=== PATIENT | male | born 1955 | race Caucasian/White ===

== ENCOUNTER 2024-08-04 08:34 | Observation (INO) | payer BC, MEDICARE ==
--- NOTE | 2024-08-04 08:43 | ED ---
General Adult HPI - General Stated complaint: Fall-head injury Time Seen by Provider: 08/04/24 08:34 Source: patient, EMS, RN notes reviewed Mode of arrival: EMS Limitations: no limitations - History of Present Illness Initial comments: 69-year-old male presents emergency department chief complaint of a head injury. Patient brought in via EMS states that he rolled out of bed striking his head he is on no blood thinners for A-fib. Patient is found to be in A-fib RVR. Patient was placed in c-collar by EMS states he has minimal neck discomfort. There was no loss conscious. Denies any other associated injuries. - Related Data Home Medications Medication Instructions Recorded Confirmed Acetaminophen Tab [Tylenol] 650 mg PO Q4H PRN 08/04/24 08/04/24 Apixaban [Eliquis] 5 mg PO BID 08/04/24 08/04/24 Calcium Phos/D3/Magnesium/Zinc 1 tab PO TID PRN 08/04/24 08/04/24 [Fzjyzrl-Ssr-Vdkf-Vitamin D3] Folic Acid 1 mg PO DAILY 08/04/24 08/04/24 Furosemide [Lasix] 20 mg PO DAILY 08/04/24 08/04/24 Isosorbide Mononitrate ER [Imdur] 60 mg PO DAILY 08/04/24 08/04/24 Melatonin 10 mg PO HS 08/04/24 08/04/24 Multivitamins, Thera [Multivitamin 1 tab PO DAILY 08/04/24 08/04/24 (formulary)] Rosuvastatin [Crestor] 20 mg PO HS 08/04/24 08/04/24 Spironolactone [Aldactone] 25 mg PO DAILY 08/04/24 08/04/24 metFORMIN HCL ER [Glucophage XR] 500 mg PO W/SUPPER 08/04/24 08/04/24 traZODone HCL [Desyrel] 50 - 150 mg PO HS PRN 08/04/24 08/04/24 Previous Rx's Medication Instructions Recorded Diltiazem Cd [Cardizem CD] 180 mg PO DAILY #0 cap 08/04/24 Metoprolol Succinate (ER) [Toprol 100 mg PO DAILY #30 tab 08/04/24 XL] lisinopriL [Zestril] 10 mg PO DAILY #0 08/04/24 Allergies Allergy/AdvReac Type Severity Reaction Status Date / Time No Known Allergies Allergy Verified 08/04/24 11:22 Review of Systems ROS Statement: Those systems with pertinent positive or pertinent negative responses have been documented in the HPI. ROS Other: All systems not noted in ROS Statement are negative. General Exam Limitations: no limitations General appearance: alert, in no apparent distress Head exam: Present: atraumatic, normocephalic, normal inspection Eye exam: Present: normal appearance, PERRL, EOMI. Absent: scleral icterus, conjunctival injection, periorbital swelling ENT exam: Present: normal exam, normal oropharynx, mucous membranes moist Neck exam: Present: normal inspection. Absent: tenderness, meningismus, full ROM (In c-collar), lymphadenopathy Respiratory exam: Present: normal lung sounds bilaterally. Absent: respiratory distress, wheezes, rales, rhonchi, stridor Cardiovascular Exam: Present: tachycardia, irregular rhythm, normal heart sounds. Absent: systolic murmur, diastolic murmur, rubs, gallop, clicks Extremities exam: Present: normal inspection, full ROM, normal capillary refill. Absent: tenderness, pedal edema, joint swelling, calf tenderness Neurological exam: Present: alert, oriented X3, CN II-XII intact, reflexes normal. Absent: motor sensory deficit Skin exam: Present: warm, dry, intact, normal color. Absent: rash Course Vital Signs 08/04/24 08/04/24 08/04/24 08:43 12:02 15:37 Temperature 97.4 F L Pulse Rate 117 H 94 68 Respiratory 22 16 16 Rate Blood Pressure 124/89 111/62 131/98 O2 Sat by Pulse 94 L 99 96 Oximetry EKG Findings - EKG Comments: EKG Findings:: EKG performed at 8: 40 A-fib with a rate of 92 QRS 114 QT/QTc 370/423 - EKG Results: EKG: interpreted by ERMD Medical Decision Making - Medical Decision Making Was pt. sent in by a medical professional or institution (, PA, NON DESTRUCTIVE TESTER, urgent care, hospital, or longterm...) When possible be specific @ -[place] Did you speak to anyone other than the patient for history (EMS, parent, family, police, friend...)? What history was obtained from this source @ -No Did you review nursing and triage notes (agree or disagree)? Why? @ -I reviewed and agree with nursing and triage notes Were old charts reviewed (outside hosp., previous admission, EMS record, old EKG, old radiological studies, urgent care reports/EKG's, longterm records)? Report findings @ -No old charts were reviewed Differential Diagnosis (chest pain, altered mental status, abdominal pain women, abdominal pain men, vaginal bleeding, weakness, fever, dyspnea, syncope, heada fco, dizziness, GI bleed, back pain, seizure, CVA, palpatations, mental health, musculoskeletal)? @ -Differential Chest Pain: Stable Angina, Unstable Angina, STEMI, NSTEMI Aortic Dissection, Pneumothorax, Musculoskeletal, Esophageal Spasm GERD, Cholecystitis, Pancreatitis, Zoster, this is not meant to be an all-inclusive list. EKG interpreted by me (3pts min.). @ -As above X-rays interpreted by me (1pt min.). @ -Chest x-ray shows no acute cardiopulmonary process CT interpreted by me (1pt min.). @ -CT brain, C-spine showing no acute intracranial hemorrhage, mass effect U/S interpreted by me (1pt. min.). @ -None done What testing was considered but not performed or refused? (CT, X-rays, U/S, labs)? Why? @ -None What meds were considered but not given or refused? Why? @ -None Did you discuss the management of the patient with other professionals (professionals i.e. , PA, NON DESTRUCTIVE TESTER, lab, RT, psych nurse, director social service, core inspector, teacher, traffic division commanding officer, window caser)? Give summary @ -EM H for admission Was smoking cessation discussed for >3mins.? @ -No Was critical care preformed (if so, how long)? @ -No Were there social determinants of health that impacted care today? How? (Homelessness, low income, unemployed, alcoholism, drug addiction, transportation, low edu. Level, literacy, decrease access to med. care, [facility], rehab)? @ -No Was there de-escalation of care discussed even if they declined (Discuss DNR or withdrawal of care, Hospice)? DNR status @ -No What co-morbidities impacted this encounter? (DM, HTN, Smoking, COPD, CAD, Cancer, CVA, ARF, Chemo, Hep., AIDS, mental health diagnosis, sleep apnea, morbid obesity)? @ -Abuse Was patient admitted / discharged? Hospital course, mention meds given and route, prescriptions, significant lab abnormalities, going to OR and other p ertinent info. @ -Made patient presented from [place] after fall out of bed, head injury on blood thinners. Code coag was called. CT was negative patient found to be in A-fib RVR. Patient started on Cardizem patient is admitted for further treatment and management. Undiagnosed new problem with uncertain prognosis? @ -No Drug Therapy requiring intensive monitoring for toxicity (Heparin, Nitro, Insulin, Cardizem)? @ -Cardizem Were any procedures done? @ -No Diagnosis/symptom? @ -Fall, A-fib RVR Acute, or Chronic, or Acute on Chronic? @ -Acute Uncomplicated (without systemic symptoms) or Complicated (systemic symptoms)? @ -Complicated Side effects of treatment? @ -No Exacerbation, Progression, or Severe Exacerbation? @ -No Poses a threat to life or bodily function? How? (Chest pain, USA, MD, pneumonia, PE, COPD, DKA, ARF, appy, cholecystitis, CVA, Diverticulitis, Homicidal, Suicidal, threat to staff... and all critical care pts) @ -Yes A-fib causing cardiac arrest - Lab Data Result diagrams: 08/04/24 08:49 08/04/24 08:49 Lab Results 08/04/24 08/04/24 08/04/24 Range/Units 08:49 08:49 08:49 WBC 7.8 (3.8-10.6) k/uL RBC 3.60 L (4.30-5.90) m/uL Hgb 12.4 L (13.0-17.5) gm/dL Hct 38.3 L (39.0-53.0) % MCV 106.3 H (80.0-100.0) fL MCH 34.4 (25.0-35.0) pg MCHC 32.4 (31.0-37.0) g/dL RDW 14.4 (11.5-15.5) % Plt Count 141 L (150-450) k/uL MPV 9.1 Neutrophils % 79 % Lymphocytes % 12 % Monocytes % 5 % Eosinophils % 2 % Basophils % 0 % Neutrophils # 6.2 (1.3-7.7) k/uL Lymphocytes # 1.0 (1.0-4.8) k/uL Monocytes # 0.4 (0-1.0) k/uL Eosinophils # 0.2 (0-0.7) k/uL Basophils # 0.0 (0-0.2) k/uL Macrocytosis Moderate PT 10.7 (10.0-12.5) sec INR 1.0 (<1.2) APTT 22.8 (22.0-30.0) sec Sodium 136 L (137-145) mmol/L Potassium 4.9 (3.5-5.1) mmol/L Chloride 103 (98-107) mmol/L Carbon Dioxide 22 (22-30) mmol/L Anion Gap 11 mmol/L BUN 36 H (9-20) mg/dL Creatinine 1.27 H (0.66-1.25) mg/dL Est GFR (CKD-EPI)AfAm 67 (>60 ml/min/1.73 sqM) Est GFR (CKD-EPI)NonAf 58 (>60 ml/min/1.73 sqM) Glucose 248 H (74-99) mg/dL Calcium 9.6 (8.4-10.2) mg/dL Magnesium 2.1 (1.6-2.3) mg/dL Total Bilirubin 1.2 (0.2-1.3) mg/dL AST 31 (17-59) U/L ALT 25 (4-49) U/L Alkaline Phosphatase 79 (38-126) U/L Troponin I (0.000-0.034) ng/mL Total Protein 6.8 (6.3-8.2) g/dL Albumin 3.9 (3.5-5.0) g/dL 08/04/24 Range/Units 08:49 WBC (3.8-10.6) k/uL RBC (4.30-5.90) m/uL Hgb (13.0-17.5) gm/dL Hct (39.0-53.0) % MCV (80.0-100.0) fL MCH (25.0-35.0) pg MCHC (31.0-37.0) g/dL RDW (11.5-15.5) % Plt Count (150-450) k/uL MPV Neutrophils % % Lymphocytes % % Monocytes % % Eosinophils % % Basophils % % Neutrophils # (1.3-7.7) k/uL Lymphocytes # (1.0-4.8) k/uL Monocytes # (0-1.0) k/uL Eosinophils # (0-0.7) k/uL Basophils # (0-0.2) k/uL Macrocytosis PT (10.0-12.5) sec INR (<1.2) APTT (22.0-30.0) sec Sodium (137-145) mmol/L Potassium (3.5-5.1) mmol/L Chloride (98-107) mmol/L Carbon Dioxide (22-30) mmol/L Anion Gap mmol/L BUN (9-20) mg/dL Creatinine (0.66-1.25) mg/dL Est GFR (CKD-EPI)AfAm (>60 ml/min/1.73 sqM) Est GFR (CKD-EPI)NonAf (>60 ml/min/1.73 sqM) Glucose (74-99) mg/dL Calcium (8.4-10.2) mg/dL Magnesium (1.6-2.3) mg/dL Total Bilirubin (0.2-1.3) mg/dL AST (17-59) U/L ALT (4-49) U/L Alkaline Phosphatase (38-126) U/L Troponin I <0.012 (0.000-0.034) ng/mL Total Protein (6.3-8.2) g/dL Albumin (3.5-5.0) g/dL Critical Care Time Critical Care Time: Yes Total Critical Care Time: 35 Disposition Clinical Impression: Atrial fibrillation with RVR Disposition: ADMITTED IP TO THIS HOSP Condition: Fair Time of Disposition: 10:47
[2024-08-04 08:47] VITALS: TEMP 97.4
[2024-08-04 08:56] LABS: Basophils % (A) 0 %; Eosinophils # (A) 0.2 k/uL (0-0.7); Eosinophils % (A) 2 %; HCT 38.3 % (39.0-53.0); HGB 12.4 gm/dL (13.0-17.5); Lymphocytes % (A) 12 %; MCH 34.4 pg (25.0-35.0); MCHC 32.4 g/dL (31.0-37.0); MCV 106.3 fL (80.0-100.0); Macrocytosis Moderate; Mean Platelet Volume 9.1; Monocytes # (A) 0.4 k/uL (0-1.0); Monocytes % (A) 5 %; Neutrophils # (A) 6.2 k/uL (1.3-7.7); Neutrophils % (A) 79 %; Platelet Count 141 k/uL (150-450); RDW 14.4 % (11.5-15.5); WBC 7.8 k/uL (3.8-10.6)
--- NOTE | 2024-08-04 08:57 | CT ---
EXAMINATION TYPE: CT brain cspine wo con DATE OF EXAM: 08/04/2024 8:47 AM COMPARISON: None. CLINICAL INDICATION: Male, 69 years old with history of pain; Fall on thinners, code coag, pain TECHNIQUE: Brain: Multiple axial CT images of the brain were obtained without IV contrast. Cspine: Axial CT images from the skull base to the inferior aspect of T2 we obtained without intraven ous contrast. Coronal and sagittal reformatted images were also reviewed. . CT DLP: 2055.6 mGycm, Automated exposure control for dose reduction was used. FINDINGS: Brain: Extra-axial spaces: No abnormal extra-axial fluid collections. Ventricular system: Within normal limits Cerebral parenchyma: No acute intraparenchymal hemorrhage or mass effect. The granado-white junction is well differentiated. Cerebellum: Unremarkable. Mass effect: No evidence of midline shift. Intracranial vasculature: unremarkable Soft tissues: Posterior right scalp edema. Calvarium/osseous structures: No depressed skull fracture. Paranasal sinuses and mastoid air cells: Clear. Visualized orbits: Orbital contents are intact. Cervical spine: Fracture: No spinal fractures. Remote appearing left posterior rib fractures. Osseous structures: Multilevel degenerative disc disease changes with endplate spurring and disc oste ophyte complex's. Vertebral alignment: Within normal limits. Spinal canal/Neural Foramina: No evidence of significant spinal canal narrowing. No evidence for sign ificant neural foraminal stenosis. Neck soft tissues: Prevertebral soft tissues are within normal limits. Other: The airway is patent. The lung apices are clear. Atherosclerosis of the carotid bifurcations a nd internal carotid arteries intracranial portions. IMPRESSION: 1. No acute intracranial process. 2. Posterior right scalp edema. 3. No evidence of cervical spine fracture. 4. Mild multilevel degenerative disc disease. [facility], , 08/04/2024 8:55 AM
[2024-08-04 09:04] LABS: Partial Thromboplastin Time 22.8 sec (22.0-30.0); Prothrombin Time 10.7 sec (10.0-12.5)
--- NOTE | 2024-08-04 09:10 | XR ---
EXAMINATION TYPE: XR chest 1V portable DATE OF EXAM: 08/04/2024 9:06 AM COMPARISON: None. CLINICAL INDICATION: Male, 69 years old with history of chest pain, TECHNIQUE: XR chest 1V portable view(s) obtained. FINDINGS: The heart size is enlarged. The pulmonary vasculature is normal. The lungs are clear. IMPRESSION: 1. No acute pulmonary process. 2. Cardiomegaly [facility], , 08/04/2024 9:08 AM
[2024-08-04] MEDS: DILTIAZEM DRIP BOLUS FROM BAG 1 MG SOLN IV ONE (09:25)
[2024-08-04] MEDS: DILTIAZEM 125 MG in SODIUM CHLORIDE 0.9% 100 ML IV SCH (09:26)
[2024-08-04 09:28] LABS: ALT 25 U/L (4-49); AST 31 U/L (17-59); African American GFR (CKD) 67 (>60 ml/min/1.73 sqM); Albumin 3.9 g/dL (3.5-5.0); Alkaline Phosphatase 79 U/L (38-126); Anion Gap 11 mmol/L; Blood Urea Nitrogen 36 mg/dL (9-20); Calcium 9.6 mg/dL (8.4-10.2); Carbon Dioxide 22 mmol/L (22-30); Chloride 103 mmol/L (98-107); Glucose 248 mg/dL (74-99); Magnesium 2.1 mg/dL (1.6-2.3); Non-African American GFR(CKD) 58 (>60 ml/min/1.73 sqM); Potassium 4.9 mmol/L (3.5-5.1); Sodium 136 mmol/L (137-145); Total Bilirubin 1.2 mg/dL (0.2-1.3); Total Protein 6.8 g/dL (6.3-8.2)
[2024-08-04] MEDS ORDERED: NITROGLYCERIN SL TABS 0.4 MG TAB SUBLINGUAL PRN (10:44)
[2024-08-04 12:03] VITALS: RESP 16
[2024-08-04] MEDS: APIXABAN 5 MG TAB PO SCH (13:09)
[2024-08-04] MEDS: DILTIAZEM CD 180 MG CAP.ER.24H PO SCH (13:09)
[2024-08-04] MEDS: METOPROLOL SUCCINATE (ER) 100 MG TAB.ER.24H PO SCH (13:09)
[2024-08-04] MEDS ORDERED: traZODone HCL 50 MG TAB PO PRN (13:12)
--- NOTE | 2024-08-04 13:13 | P.CRDCN ---
History of Present Illness Consult date: 08/04/24 Consult reason: atrial fibrillation History of present illness: This is a 69-year-old male with history of atrial fibrillation on Eliquis, hypertension, hyperlipidemia, diabetes. Patient states that he is at [facility] and was having a dream and fell out of bed and hit his head. Blood pressure 111/62, heart rate 94, pulse ox 99% on room air. Patient has been started on Cardizem drip and heart rate is well-controlled. Patient states that he is concerned that he will lose his room at [facility] if he does not go back there soon. -EKG: Atrial fibrillation 92 bpm -Chest x-ray: No acute process. Cardiomegaly. -CT of the brain and cervical spine: No acute intracranial process. Right scalp edema. No evidence of cervical spine fracture. Mild multilevel degenerative disc disease. -Laboratory studies: WBC 7.8, hemoglobin 12.4, platelet count 141. Creatinine 36, creatinine 1.27. Troponin negative x 2. -Home cardiac medications: Eliquis 5 mg twice daily, Cardizem CD 240 mg daily, Lasix 20 mg daily, Imdur 60 mg daily, lisinopril 10 mg twice daily, Toprol-XL 100 mg twice daily, Crestor 20 mg at bedtime, spironolactone 25 mg daily Review Of Systems: At the time of my exam: CONSTITUTIONAL: Denies fever or chills. HEENT: Denies blurred vision, vision changes, or eye pain. Denies hemoptysis CARDIOVASCULAR: Denies chest pain. Denies orthopnea. Denies PND. Denies palpitations RESPIRATORY: Denies shortness of breath. GASTROINTESTINAL: Denies abdominal pain. Denies nausea or vomiting. HEMATOLOGIC: Denies bleeding disorders. GENITOURINARY: Denies any blood in urine. SKIN: Denies puritis. Denies rash. Physical examination: Gen: This is a 69-year-old male in no acute distress VS: reviewed HEENT: Head has scalp hematoma, normocephalic. Pupils equal, round. Sclerae is anicteric. NECK: Supple. No JVD. LUNGS: Clear to auscultation. No wheezes or rhonchi. No intercostal retractions. HEART: Irregular rate and rhythm. ABDOMEN: Soft No tenderness. EXTREMITIES: No pedal edema. No calf tenderness. NEUROLOGICAL: Patient is awake, alert and oriented x3. Assessment: Atrial fibrillation with RVR, probable paroxysmal atrial fibrillation Hypertension Hyperlipidemia Diabetes Plan: Resume patient's home cardiac medications with the following changes Decrease metoprolol 100 mg to daily Decrease Cardizem CD to 180 mg Discontinue Cardizem drip Obtain 2-D echocardiogram and Doppler study to assess cardiac structure and function After echocardiogram is obtained, patient is cleared for discharge back to [facility]. Thank you kindly for this consultation. Nurse practitioner note has been reviewed, I agree with documented findings and plan of care. Patient was seen and examined. Past Medical History Past Medical History: Atrial Fibrillation, Diabetes Mellitus, Hypertension Additional Past Medical History / Comment(s): ETOH abuse History of Any Multi-Drug Resistant Organisms: None Reported Past Surgical History: No Surgical Hx Reported Past Psychological History: No Psychological Hx Reported Smoking Status: Never smoker Past Alcohol Use History: Abuse, Daily Past Drug Use History: None Reported Medications and Allergies Home Medications Medication Instructions Recorded Confirmed Type Acetaminophen Tab [Tylenol] 650 mg PO Q4H PRN 08/04/24 08/04/24 History Apixaban [Eliquis] 5 mg PO BID 08/04/24 08/04/24 History Calcium Phos/D3/Magnesium/Zinc 1 tab PO TID PRN 08/04/24 08/04/24 History [Rrzzjhg-Ydm-Igpj-Vitamin D3] Diltiazem Cd [Cardizem CD] 240 mg PO DAILY 08/04/24 08/04/24 History Folic Acid 1 mg PO DAILY 08/04/24 08/04/24 History Furosemide [Lasix] 20 mg PO DAILY 08/04/24 08/04/24 History Isosorbide Mononitrate ER [Imdur] 60 mg PO DAILY 08/04/24 08/04/24 History Melatonin 10 mg PO HS 08/04/24 08/04/24 History Metoprolol Succinate (ER) [Toprol 100 mg PO BID 08/04/24 08/04/24 History Xl] Multivitamins, Thera [Multivitamin 1 tab PO DAILY 08/04/24 08/04/24 History (formulary)] Rosuvastatin [Crestor] 20 mg PO HS 08/04/24 08/04/24 History Spironolactone [Aldactone] 25 mg PO DAILY 08/04/24 08/04/24 History lisinopriL [Zestril] 10 mg PO BID 08/04/24 08/04/24 History metFORMIN HCL ER [Glucophage XR] 500 mg PO W/SUPPER 08/04/24 08/04/24 History traZODone HCL [Desyrel] 50 - 150 mg PO HS PRN 08/04/24 08/04/24 History Allergies Allergy/AdvReac Type Severity Reaction Status Date / Time No Known Allergies Allergy Verified 08/04/24 11:22 Physical Exam Vitals: Vital Signs Temp Pulse Resp BP Pulse Ox 08/04/24 12:02 94 16 111/62 99 08/04/24 08:43 97.4 F L 117 H 22 124/89 94 L Intake and Output 08/03/24 08/04/24 08/04/24 22:59 06:59 14:59 Other: Weight 136.078 kg Results 08/04/24 08:49 08/04/24 08:49 Cardiac Enzymes 08/04/24 08/04/24 08/04/24 Range/Units 08:49 08:49 11:30 AST 31 (17-59) U/L Troponin I <0.012 <0.012 (0.000-0.034) ng/mL Coagulation 08/04/24 Range/Units 08:49 PT 10.7 (10.0-12.5) sec APTT 22.8 (22.0-30.0) sec CBC 08/04/24 Range/Units 08:49 WBC 7.8 (3.8-10.6) k/uL RBC 3.60 L (4.30-5.90) m/uL Hgb 12.4 L (13.0-17.5) gm/dL Hct 38.3 L (39.0-53.0) % Plt Count 141 L (150-450) k/uL Comprehensive Metabolic Panel 08/04/24 Range/Units 08:49 Sodium 136 L (137-145) mmol/L Potassium 4.9 (3.5-5.1) mmol/L Chloride 103 (98-107) mmol/L Carbon Dioxide 22 (22-30) mmol/L BUN 36 H (9-20) mg/dL Creatinine 1.27 H (0.66-1.25) mg/dL Glucose 248 H (74-99) mg/dL Calcium 9.6 (8.4-10.2) mg/dL AST 31 (17-59) U/L ALT 25 (4-49) U/L Alkaline Phosphatase 79 (38-126) U/L Total Protein 6.8 (6.3-8.2) g/dL Albumin 3.9 (3.5-5.0) g/dL Current Medications Generic Name Dose Route Start Last Admin Trade Name Freq PRN Reason Stop Dose Admin Diltiazem HCl 125 mg/ Sodium 125 mls @ 5 mls/hr 08/04/24 09:15 08/04/24 09:26 Chloride IV 5 mg/hr .Q24H GEOFF 5 mls/hr Administration 5 MG/HR Nitroglycerin 0.4 mg 08/04/24 10:44 Nitroglycerin Sl Tabs 0.4 Mg Tab SUBLINGUAL Q5M PRN Chest Pain Intake and Output 08/03/24 08/04/24 08/04/24 22:59 06:59 14:59 Other: Weight 136.078 kg Patient Weight 08/05/24 06:59 Weight 136.078 kg 08/04/24 08:49 08/04/24 08:49
[2024-08-04] MEDS: METOPROLOL TARTRATE 25 MG TAB PO SCH (13:15)
--- NOTE | 2024-08-04 13:22 | P.HPIM ---
History of Present Illness Patient is a 71-year-old pleasant obese male came in after a fall decubiti mechanical fall fell from bed happily he was having an active dream. Patient is admitted because of atrial fibrillation with rapid unclear rate was on Cardizem IV heart rate has come down and patient was eval by cardiology and patient will be discharged today with medication changes mention as mentioned below. Chest x-ray did not show any cardiomegaly patient is unsure whether he has heart failure at night but does take Aldactone Lasix and lisinopril. Patient blood pressure is low normal at this time. Patient had a scalp hematoma CT of the brain and CT cervical spine did not show any fractures except for multilevel degenerative disc disease. Patient is transition to oral medication cleared by cardiology will be discharged later today. REVIEW OF SYSTEMS: All other systems are negative except those mentioned in the HPI PHYSICAL EXAMINATION: GENERAL: The patient is alert and oriented x3, not in any acute distress. Well developed, well nourished. Obese HEENT: Pupils are round and equally reacting to light. EOMI. No scleral icterus. No conjunctival pallor. Normocephalic, atraumatic. No pharyngeal erythema. No thyromegaly. CARDIOVASCULAR: S1 and S2 present. No murmurs, rubs, or gallops. PULMONARY: Chest is clear to auscultation, no wheezing or crackles. ABDOMEN: Soft, nontender, nondistended, normoactive bowel sounds. No palpable organomegaly. MUSCULOSKELETAL: No joint swelling or deformity. EXTREMITIES: No cyanosis, clubbing, nonpitting bilateral pedal edema NEUROLOGICAL: Gross neurological examination did not reveal any focal deficits. SKIN: No rashes. Assessment and plan -Atrial fibrillation with rapid unclear rate patient is presently rate controlled patient has paroxysmal atrial fibrillation IV Cardizem will be discontinued patient wall Cardizem will be decreased to 180 mg sustained-release and metoprolol will be increased from 25 to 100 mg sustained-release patient will continue with Eliquis will be discharged today -Possibility diabetes mellitus -Hyperlipidemia of congestive heart failure although I do not have any echocardiogram available patient is not in heart failure exacerbation patient will be resumed on Lasix Aldactone and lisinopril we will cut down the dose of lisinopril because of hypotension -Type 2 diabetes mellitus -Hyperlipidemia Morbid obesity possibly of sleep apnea patient will be discharged Later today we will monitor him for 2-3 more hours before discharge next Past Medical History Past Medical History: Atrial Fibrillation, Diabetes Mellitus, Hypertension Additional Past Medical History / Comment(s): ETOH abuse History of Any Multi-Drug Resistant Organisms: None Reported Past Surgical History: No Surgical Hx Reported Past Psychological History: No Psychological Hx Reported Smoking Status: Never smoker Past Alcohol Use History: Abuse, Daily Past Drug Use History: None Reported Medications and Allergies Home Medications Medication Instructions Recorded Confirmed Type Acetaminophen Tab [Tylenol] 650 mg PO Q4H PRN 08/04/24 08/04/24 History Apixaban [Eliquis] 5 mg PO BID 08/04/24 08/04/24 History Calcium Phos/D3/Magnesium/Zinc 1 tab PO TID PRN 08/04/24 08/04/24 History [Xvaiksw-Aug-Peao-Vitamin D3] Diltiazem Cd [Cardizem CD] 180 mg PO DAILY #0 cap 08/04/24 Rx Folic Acid 1 mg PO DAILY 08/04/24 08/04/24 History Furosemide [Lasix] 20 mg PO DAILY 08/04/24 08/04/24 History Isosorbide Mononitrate ER [Imdur] 60 mg PO DAILY 08/04/24 08/04/24 History Melatonin 10 mg PO HS 08/04/24 08/04/24 History Metoprolol Succinate (ER) [Toprol 100 mg PO DAILY #30 tab 08/04/24 Rx XL] Multivitamins, Thera [Multivitamin 1 tab PO DAILY 08/04/24 08/04/24 History (formulary)] Rosuvastatin [Crestor] 20 mg PO HS 08/04/24 08/04/24 History Spironolactone [Aldactone] 25 mg PO DAILY 08/04/24 08/04/24 History lisinopriL [Zestril] 10 mg PO DAILY #0 08/04/24 08/04/24 Rx metFORMIN HCL ER [Glucophage XR] 500 mg PO W/SUPPER 08/04/24 08/04/24 History traZODone HCL [Desyrel] 50 - 150 mg PO HS PRN 08/04/24 08/04/24 History Allergies Allergy/AdvReac Type Severity Reaction Status Date / Time No Known Allergies Allergy Verified 08/04/24 11:22 Physical Exam Vitals: Vital Signs Temp Pulse Resp BP Pulse Ox 08/04/24 12:02 94 16 111/62 99 08/04/24 08:43 97.4 F L 117 H 22 124/89 94 L Intake and Output 08/03/24 08/04/24 08/04/24 22:59 06:59 14:59 Other: Weight 136.078 kg Results CBC & Chem 7: 08/04/24 08:49 08/04/24 08:49 Labs: Abnormal Lab Results - Last 24 Hours (Table) 08/04/24 08/04/24 Range/Units 08:49 08:49 RBC 3.60 L (4.30-5.90) m/uL Hgb 12.4 L (13.0-17.5) gm/dL Hct 38.3 L (39.0-53.0) % MCV 106.3 H (80.0-100.0) fL Plt Count 141 L (150-450) k/uL Sodium 136 L (137-145) mmol/L BUN 36 H (9-20) mg/dL Creatinine 1.27 H (0.66-1.25) mg/dL Glucose 248 H (74-99) mg/dL
--- NOTE | 2024-08-04 13:22 | P.DS ---
Providers Date of admission: 08/04/24 10:42 Attending physician: Kathie Zaldivar Consults: 08/04/24 10:44 Consult Physician Urgent Consulting Provider: Lino Chen Consult Reason/Comments: afib Do you want consulting provider notified?: Yes Primary care physician: Physician Nonstaff Hospital Course: Patient is a 71-year-old pleasant obese male came in after a fall decubiti mechanical fall fell from bed happily he was having an active dream. Patient is admitted because of atrial fibrillation with rapid unclear rate was on Cardizem IV heart rate has come down and patient was eval by cardiology and patient will be discharged today with medication changes mention as mentioned below. Chest x-ray did not show any cardiomegaly patient is unsure whether he has heart failure at night but does take Aldactone Lasix and lisinopril. Patient blood pressure is low normal at this time. Patient had a scalp hematoma CT of the brain and CT cervical spine did not show any fractures except for multilevel degenerative disc disease. Patient is transition to oral medication cleared by cardiology will be discharged later today. REVIEW OF SYSTEMS: All other systems are negative except those mentioned in the HPI PHYSICAL EXAMINATION: GENERAL: The patient is alert and oriented x3, not in any acute distress. Well developed, well nourished. Obese HEENT: Pupils are round and equally reacting to light. EOMI. No scleral icterus. No conjunctival pallor. Normocephalic, atraumatic. No pharyngeal erythema. No thyromegaly. CARDIOVASCULAR: S1 and S2 present. No murmurs, rubs, or gallops. PULMONARY: Chest is clear to auscultation, no wheezing or crackles. ABDOMEN: Soft, nontender, nondistended, normoactive bowel sounds. No palpable organomegaly. MUSCULOSKELETAL: No joint swelling or deformity. EXTREMITIES: No cyanosis, clubbing, nonpitting bilateral pedal edema NEUROLOGICAL: Gross neurological examination did not reveal any focal deficits. SKIN: No rashes. Assessment and plan -Atrial fibrillation with rapid unclear rate patient is presently rate controlled patient has paroxysmal atrial fibrillation IV Cardizem will be discontinued patient wall Cardizem will be decreased to 180 mg sustained-release and metoprolol will be increased from 25 to 100 mg sustained-release patient will continue with Eliquis will be discharged today -Possibility diabetes mellitus -Hyperlipidemia of congestive heart failure although I do not have any echocardiogram available patient is not in heart failure exacerbation patient will be resumed on Lasix Aldactone and lisinopril we will cut down the dose of lisinopril because of hypotension -Type 2 diabetes mellitus -Hyperlipidemia Morbid obesity possibly of sleep apnea patient will be discharged Later today we will monitor him for 2-3 more hours before discharge next Patient Condition at Discharge: Fair Plan - Discharge Summary New Discharge Prescriptions: New Diltiazem Cd [Cardizem CD] 180 mg PO DAILY #0 cap Metoprolol Succinate (ER) [Toprol XL] 100 mg PO DAILY #30 tab Continue Acetaminophen Tab [Tylenol] 650 mg PO Q4H PRN PRN Reason: Pain Melatonin 10 mg PO HS Calcium Phos/D3/Magnesium/Zinc [Qkiscss-Tla-Shoi-Vitamin D3] 1 tab PO TID PRN PRN Reason: Supplement Furosemide [Lasix] 20 mg PO DAILY Folic Acid 1 mg PO DAILY traZODone HCL [Desyrel] 50 - 150 mg PO HS PRN PRN Reason: Insomnia Spironolactone [Aldactone] 25 mg PO DAILY Rosuvastatin [Crestor] 20 mg PO HS Multivitamins, Thera [Multivitamin (formulary)] 1 tab PO DAILY metFORMIN HCL ER [Glucophage XR] 500 mg PO W/SUPPER Isosorbide Mononitrate ER [Imdur] 60 mg PO DAILY Apixaban [Eliquis] 5 mg PO BID Changed lisinopriL [Zestril] 10 mg PO DAILY #0 Discontinued Metoprolol Succinate (ER) [Toprol Xl] 100 mg PO BID Diltiazem Cd [Cardizem CD] 240 mg PO DAILY Discharge Medication List Acetaminophen Tab [Tylenol] 650 mg PO Q4H PRN 08/04/24 [History] Apixaban [Eliquis] 5 mg PO BID 08/04/24 [History] Calcium Phos/D3/Magnesium/Zinc [Ibvlgmv-Ogf-Rkqk-Vitamin D3] 1 tab PO TID PRN 08/04/24 [History] Diltiazem Cd [Cardizem CD] 180 mg PO DAILY #0 cap 08/04/24 [Rx] Folic Acid 1 mg PO DAILY 08/04/24 [History] Furosemide [Lasix] 20 mg PO DAILY 08/04/24 [History] Isosorbide Mononitrate ER [Imdur] 60 mg PO DAILY 08/04/24 [History] Melatonin 10 mg PO HS 08/04/24 [History] Metoprolol Succinate (ER) [Toprol XL] 100 mg PO DAILY #30 tab 08/04/24 [Rx] Multivitamins, Thera [Multivitamin (formulary)] 1 tab PO DAILY 08/04/24 [History] Rosuvastatin [Crestor] 20 mg PO HS 08/04/24 [History] Spironolactone [Aldactone] 25 mg PO DAILY 08/04/24 [History] lisinopriL [Zestril] 10 mg PO DAILY #0 08/04/24 [Rx] metFORMIN HCL ER [Glucophage XR] 500 mg PO W/SUPPER 08/04/24 [History] traZODone HCL [Desyrel] 50 - 150 mg PO HS PRN 08/04/24 [History] Follow up Appointment(s)/Referral(s): Nonstaff,Physician [Primary Care Provider] - 3 Days Discharge Disposition: HOME SELF-CARE
[2024-08-04 15:38] VITALS: BP 131/98; PULSE 68
[2024-08-04] MEDS ORDERED: metFORMIN 500 MG TAB PO SCH (17:30)
[2024-08-04] MEDS ORDERED: ATORVASTATIN 40 MG TAB PO SCH (21:00)
--- NOTE | 2024-08-05 07:24 | CA ---
Transthoracic Echo Report Name: Mikey Gomez Age: 69 Gender: M : 1955 Exam Date: 08/04/2024 14:35 Exam Location: [facility] Ht (in): 68 Wt (lb): 300 Ordering Physician: Kymberly Harman Attending/Referring Phys: [id number], Kimani Project Administrator Shannan Leonardo RDCS Procedure CPT: Indications: LVF Cardiac Hx: Technical Quality: Poor Contrast 1: Total Dose (mL): Contrast 2: Total Dose (mL): MEASUREMENTS (Male / Female) Normal Values 2D ECHO LV Diastolic Diameter PLAX 5.1 cm 4.2 - 5.9 / 3.9 - 5.3 cm LV Systolic Diameter PLAX 4.9 cm IVS Diastolic Thickness 1.0 cm 0.6 - 1.0 / 0.6 - 0.9 cm LVPW Diastolic Thickness 1.1 cm 0.6 - 1.0 / 0.6 - 0.9 cm LV Relative Wall Thickness 0.4 LVOT Diameter 2.4 cm DOPPLER AV Peak Velocity 110.7 cm/s AV Peak Gradient 4.9 mmHg AV Mean Velocity 81.6 cm/s AV Mean Gradient 3.0 mmHg AV Velocity Time Integral 22.1 cm LVOT Peak Velocity 72.3 cm/s LVOT Peak Gradient 2.1 mmHg LVOT Velocity Time Integral 14.0 cm LVOT Stroke Volume 61.4 cm??? LVOT Stroke Volume Index 25.3 ml/m??? LVOT Cardiac Index 1589.4 cm???/min???m??? AV Area Cont Eq vti 2.8 cm??? AV Area Cont Eq pk 2.9 cm??? TR Peak Velocity 261.5 cm/s TR Peak Gradient 27.4 mmHg PV Peak Velocity 62.9 cm/s PV Peak Gradient 1.6 mmHg FINDINGS Left Ventricle Left ventricular ejection fraction is estimated at 45-50 %. Left ventricular cavity size normal. Left ventricular wall thickness normal. Reduced global left ventricular systolic function. Right Ventricle Right ventricle not well visualized. Right Atrium Right atrium not well visualized. Left Atrium Moderately increased left atrial area. Mitral Valve Structurally normal mitral valve. No evidence for mitral valve prolapse. No mitral stenosis. Mild mitral regurgitation. Aortic Valve Trileaflet aortic valve. Aortic valve sclerosis. No aortic valve stenosis or regurgitation. Tricuspid Valve Tricuspid valve not well visualized. No tricuspid stenosis. moderate tricuspid regurgitation. Pulmonic Valve Pulmonic valve not well visualized. . No pulmonic stenosis. Trace pulmonic regurgitation. Pericardium No pericardial effusion. Aorta Aortic annulus normal. CONCLUSIONS Technically difficult study. Normal left ventricular systolic function appears to be mildly impaired although clear segmental wall motion could not be evaluated Very limited Doppler study with mild mitral and moderate tricuspid regurgitation Previewed by: Dr. Lino Chen MD (Electronically Signed) Final Date: 05 August 2024 07:23
[2024-08-05] MEDS ORDERED: SPIRONOLACTONE 25 MG TAB PO SCH (09:00)
[2024-08-05] MEDS ORDERED: FUROSEMIDE 20 MG TAB PO SCH (09:00)
[2024-08-05] MEDS ORDERED: ISOSORBIDE MONONITRATE ER 60 MG TAB.ER.24H PO SCH (09:00)
== END 2024-08-06 16:05 | disposition home or self-care (01) ==
LOC: EC 08:34 → INTOOBSV 10:42 → 3SCARD 10:42 → UNDODISIN 16:05
PROVIDERS: ADMIT Internal Medicine; ATTEND Internal Medicine
DX: I48.0 Paroxysmal atrial fibrillation (principal); Z68.42 Body mass index [BMI] 45.0-49.9, adult; I11.0 Hypertensive heart disease with heart failure; I50.9 Heart failure, unspecified; E78.5 Hyperlipidemia, unspecified; E11.9 Type 2 diabetes mellitus without complications; E66.01 Morbid (severe) obesity due to excess calories; Z79.01 Long term (current) use of anticoagulants; Z79.84 Long term (current) use of oral hypoglycemic drugs; Z79.899 Other long term (current) drug therapy
CPT/HCPCS: 96374; 99291; 36415; 93005; 93306; 80053; 83735; 84484; 85025; 85610; 85730; 71045; 72125; 70450; G0378 ×3

== ENCOUNTER 2024-08-13 18:33 | Inpatient (IN) | payer MEDICARE ==
[2024-08-13 19:16] LABS: Basophils % (A) 0 %; Eosinophils # (A) 0.2 k/uL (0-0.7); Eosinophils % (A) 2 %; HCT 38.3 % (39.0-53.0); HGB 12.7 gm/dL (13.0-17.5); Lymphocytes % (A) 10 %; MCH 34.2 pg (25.0-35.0); MCHC 33.1 g/dL (31.0-37.0); MCV 103.3 fL (80.0-100.0); Macrocytosis Slight; Mean Platelet Volume 9.7; Monocytes # (A) 0.4 k/uL (0-1.0); Monocytes % (A) 4 %; Neutrophils % (A) 84 %; Platelet Count 154 k/uL (150-450); RBC 3.71 m/uL (4.30-5.90); RDW 14.6 % (11.5-15.5); WBC 10.8 k/uL (3.8-10.6)
[2024-08-13 19:28] LABS: Partial Thromboplastin Time 24.8 sec (22.0-30.0)
[2024-08-13 19:45] LABS: ALT 26 U/L (4-49); AST 30 U/L (17-59); African American GFR (CKD) 56 (>60 ml/min/1.73 sqM); Albumin 4.4 g/dL (3.5-5.0); Alkaline Phosphatase 134 U/L (38-126); Anion Gap 9 mmol/L; Blood Urea Nitrogen 45 mg/dL (9-20); Calcium 9.9 mg/dL (8.4-10.2); Carbon Dioxide 25 mmol/L (22-30); Chloride 102 mmol/L (98-107); Glucose 120 mg/dL (74-99); Non-African American GFR(CKD) 49 (>60 ml/min/1.73 sqM); Potassium 5.8 mmol/L (3.5-5.1); Sodium 136 mmol/L (137-145); Total Bilirubin 1.4 mg/dL (0.2-1.3); Total Protein 7.6 g/dL (6.3-8.2)
[2024-08-13 19:53] LABS: NT-Pro-B-Type Natriuretic Pept 3210 pg/mL
[2024-08-13 20:04] LABS: Influenza A Not Detected (Not Detectd); Influenza B Not Detected (Not Detectd); RSV Not Detected (Not Detectd)
--- NOTE | 2024-08-13 20:08 | XR ---
EXAMINATION TYPE: XR chest 2V DATE OF EXAM: 08/13/2024 CLINICAL HISTORY: Difficulty in breathing. TECHNIQUE: Frontal and lateral views of the chest are obtained. COMPARISON: Chest x-ray 9 days earlier FINDINGS: There is no suspicious focal air space opacity, pleural effusion, or pneumothorax seen. Un derlying emphysematous change is not excluded. Cardiomegaly is redemonstrated. The osseous structur es are intact. IMPRESSION: Cardiomegaly without acute pulmonary process. [facility], , 08/13/2024 8:06 PM
--- NOTE | 2024-08-13 20:36 | ED ---
SOB HPI - General Chief Complaint: Shortness of Breath Stated Complaint: SOB Time Seen by Provider: 08/13/24 18:40 Source: patient, EMS Mode of arrival: EMS Limitations: no limitations - History of Present Illness Initial Comments: 69-year-old male presents to the emergency department from [place]. Was reporting shortness of breath and cough which is nonproductive and started today. Patient denies history of COPD. He has never smoked. He denies fevers or chills. Patient was recently hospitalized for elevated heart rate and found to have A-fib with RVR. He does take Eliquis for anticoagulation. Patient is also on Cardizem and metoprolol for rate control. He was not administered his metoprolol today due to lower blood pressures. Patient denies any chest pain. No history of congestive heart failure. He is on Lasix 20 mg daily. No other alleviating, precipitating or modifying factors - Related Data Home Medications Medication Instructions Recorded Confirmed Acetaminophen Tab [Tylenol] 650 mg PO Q4H PRN 08/04/24 08/13/24 Apixaban [Eliquis] 5 mg PO BID 08/04/24 08/13/24 Calcium Phos/D3/Magnesium/Zinc 1 tab PO TID PRN 08/04/24 08/13/24 [Laezbxw-Vky-Pzwj-Vitamin D3] Folic Acid 1 mg PO DAILY 08/04/24 08/13/24 Furosemide [Lasix] 20 mg PO DAILY 08/04/24 08/13/24 Isosorbide Mononitrate ER [Imdur] 60 mg PO DAILY 08/04/24 08/13/24 Melatonin 10 mg PO HS 08/04/24 08/13/24 Multivitamins, Thera [Multivitamin 1 tab PO DAILY 08/04/24 08/13/24 (formulary)] Spironolactone [Aldactone] 25 mg PO DAILY 08/04/24 08/13/24 metFORMIN HCL ER [Glucophage XR] 500 mg PO W/SUPPER 08/04/24 08/13/24 traZODone HCL [Desyrel] 50 - 150 mg PO HS PRN 08/04/24 08/13/24 Diltiazem Cd [Cardizem CD] 240 mg PO DAILY 08/13/24 08/13/24 Loperamide [Imodium] 4 mg PO QID PRN 08/13/24 08/13/24 Metoprolol Succinate (ER) [Toprol 100 mg PO DAILY 08/13/24 08/13/24 XL] Rosuvastatin [Crestor] 10 mg PO HS 08/13/24 08/13/24 guaiFENesin [guaiFENesin Oral 200 mg PO Q4H PRN 08/13/24 08/13/24 Solution] lisinopriL [Zestril] 10 mg PO BID 08/13/24 08/13/24 Allergies Allergy/AdvReac Type Severity Reaction Status Date / Time amiodarone Allergy Unknown, Verified 08/13/24 20:53 per [place] Review of Systems ROS Statement: Those systems with pertinent positive or pertinent negative responses have been documented in the HPI. ROS Other: All systems not noted in ROS Statement are negative. Past Medical History Past Medical History: Atrial Fibrillation, Diabetes Mellitus, Hypertension Additional Past Medical History / Comment(s): ETOH abuse History of Any Multi-Drug Resistant Organisms: None Reported Past Surgical History: No Surgical Hx Reported Past Psychological History: No Psychological Hx Reported Smoking Status: Never smoker Past Alcohol Use History: Abuse, Daily Past Drug Use History: None Reported General Exam Limitations: no limitations Course Vital Signs 08/13/24 08/13/24 08/13/24 18:37 19:21 20:27 Temperature 98.0 F Pulse Rate 120 H 114 H 107 H Respiratory 20 20 18 Rate Blood Pressure 95/83 126/80 120/77 O2 Sat by Pulse 94 L 96 94 L Oximetry 08/13/24 22:00 Temperature Pulse Rate 120 H Respiratory 22 Rate Blood Pressure 150/95 O2 Sat by Pulse 92 L Oximetry Medical Decision Making - Medical Decision Making Was pt. sent in by a medical professional or institution (, PA, NET SQL DEVELOPER, urgent care, hospital, or jail...) When possible be specific @ -[No] Did you speak to anyone other than the patient for history (EMS, parent, family, police, friend...)? What history was obtained from this source @ -[No] Did you review nursing and triage notes (agree or disagree)? Why? @ -[I reviewed and agree with nursing and triage notes] Were old charts reviewed (outside hosp., previous admission, EMS record, old EKG, old radiological studies, urgent care reports/EKG's, jail records)? Report findings @ -[No old charts were reviewed] Differential Diagnosis (chest pain, altered mental status, abdominal pain women, abdominal pain men, vaginal bleeding, weakness, fever, dyspnea, syncope, headache, dizziness, GI bleed, back pain, seizure, CVA, palpatations, mental health, musculoskeletal)? @ -[not applicable] EKG interpreted by me (3pts min.). @ -Yes and demonstrates A-fib with rate of 116. QRS 105. QTc of 424. No acute ST segment elevations or depressions X-rays interpreted by me (1pt min.). @ -[None done] CT interpreted by me (1pt min.). @ -[None done] U/S interpreted by me (1pt. min.). @ -[None done] What testing was considered but not performed or refused? (CT, X-rays, U/S, labs)? Why? @ -[None] What meds were considered but not given or refused? Why? @ -[None] Did you discuss the management of the patient with other professionals (professionals i.e. , PA, NET SQL DEVELOPER, lab, RT, psych nurse, socially responsible investment adviser, wheat and oats flake miller, teacher, chief development officer, human services case manager)? Give summary @ -[No] Was smoking cessation discussed for >3mins.? @ -[No] Was critical care preformed (if so, how long)? @ -[No] Were there social determinants of health that impacted care today? How? (Homelessness, low income, unemployed, alcoholism, drug addiction, transportation, low edu. Level, literacy, decrease access to med. care, skilled nursing, rehab)? @ -[No] Was there de-escalation of care discussed even if they declined (Discuss DNR or withdrawal of care, Hospice)? DNR status @ -[No] What co-morbidities impacted this encounter? (DM, HTN, Smoking, COPD, CAD, Cancer, CVA, ARF, Chemo, Hep., AIDS, mental health diagnosis, sleep apnea, morbid obesity)? @ -[None] Was patient admitted / discharged? Hospital course, mention meds given and route, prescriptions, significant lab abnormalities, going to OR and other pertinent info. @ -[hospital course] Undiagnosed new problem with uncertain prognosis? @ -[No] Drug Therapy requiring intensive monitoring for toxicity (Heparin, Nitro, Insulin, Cardizem)? @ -[No] Were any procedures done? @ -[No] Diagnosis/symptom? @ -[default] Acute, or Chronic, or Acute on Chronic? @ -[default] Uncomplicated (without systemic symptoms) or Complicated (systemic symptoms)? @ -[default] Side effects of treatment? @ -[No] Exacerbation, Progression, or Severe Exacerbation? @ -[No] Poses a threat to life or bodily function? How? (Chest pain, [place], [place], pneumonia, PE, COPD, DKA, ARF, appy, cholecystitis, CVA, Diverticulitis, Homicidal, Suicidal, threat to staff... and all critical care pts) @ -[No] - Lab Data Result diagrams: 08/13/24 19:08 08/13/24 19:08 Lab Results 08/13/24 08/13/24 08/13/24 Range/Units 19:08 19:08 19:08 WBC 10.8 H (3.8-10.6) k/uL RBC 3.71 L (4.30-5.90) m/uL Hgb 12.7 L (13.0-17.5) gm/dL Hct 38.3 L (39.0-53.0) % MCV 103.3 H (80.0-100.0) fL MCH 34.2 (25.0-35.0) pg MCHC 33.1 (31.0-37.0) g/dL RDW 14.6 (11.5-15.5) % Plt Count 154 (150-450) k/uL MPV 9.7 Neutrophils % 84 % Lymphocytes % 10 % Monocytes % 4 % Eosinophils % 2 % Basophils % 0 % Neutrophils # 9.0 H (1.3-7.7) k/uL Lymphocytes # 1.0 (1.0-4.8) k/uL Monocytes # 0.4 (0-1.0) k/uL Eosinophils # 0.2 (0-0.7) k/uL Basophils # 0.0 (0-0.2) k/uL Macrocytosis Slight PT 11.0 (10.0-12.5) sec INR 1.0 (<1.2) APTT 24.8 (22.0-30.0) sec Sodium 136 L (137-145) mmol/L Potassium 5.8 H (3.5-5.1) mmol/L Chloride 102 (98-107) mmol/L Carbon Dioxide 25 (22-30) mmol/L Anion Gap 9 mmol/L BUN 45 H (9-20) mg/dL Creatinine 1.47 H (0.66-1.25) mg/dL Est GFR (CKD-EPI)AfAm 56 (>60 ml/min/1.73 sqM) Est GFR (CKD-EPI)NonAf 49 (>60 ml/min/1.73 sqM) Glucose 120 H (74-99) mg/dL Plasma Lactic Acid Wilder (0.7-2.0) mmol/L Calcium 9.9 (8.4-10.2) mg/dL Total Bilirubin 1.4 H (0.2-1.3) mg/dL AST 30 (17-59) U/L ALT 26 (4-49) U/L Alkaline Phosphatase 134 H (38-126) U/L Troponin I (0.000-0.034) ng/mL NT-Pro-B Natriuret Pep 3210 pg/mL Total Protein 7.6 (6.3-8.2) g/dL Albumin 4.4 (3.5-5.0) g/dL Influenza Type A (PCR) (Not Detectd) Influenza Type B (PCR) (Not Detectd) RSV (PCR) (Not Detectd) SARS-CoV-2 (PCR) (Not Detectd) 08/13/24 08/13/24 08/13/24 Range/Units 19:08 19:08 19:22 WBC (3.8-10.6) k/uL RBC (4.30-5.90) m/uL Hgb (13.0-17.5) gm/dL Hct (39.0-53.0) % MCV (80.0-100.0) fL MCH (25.0-35.0) pg MCHC (31.0-37.0) g/dL RDW (11.5-15.5) % Plt Count (150-450) k/uL MPV Neutrophils % % Lymphocytes % % Monocytes % % Eosinophils % % Basophils % % Neutrophils # (1.3-7.7) k/uL Lymphocytes # (1.0-4.8) k/uL Monocytes # (0-1.0) k/uL Eosinophils # (0-0.7) k/uL Basophils # (0-0.2) k/uL Macrocytosis PT (10.0-12.5) sec INR (<1.2) APTT (22.0-30.0) sec Sodium (137-145) mmol/L Potassium (3.5-5.1) mmol/L Chloride (98-107) mmol/L Carbon Dioxide (22-30) mmol/L Anion Gap mmol/L BUN (9-20) mg/dL Creatinine (0.66-1.25) mg/dL Est GFR (CKD-EPI)AfAm (>60 ml/min/1.73 sqM) Est GFR (CKD-EPI)NonAf (>60 ml/min/1.73 sqM) Glucose (74-99) mg/dL Plasma Lactic Acid Wilder 1.5 (0.7-2.0) mmol/L Calcium (8.4-10.2) mg/dL Total Bilirubin (0.2-1.3) mg/dL AST (17-59) U/L ALT (4-49) U/L Alkaline Phosphatase (38-126) U/L Troponin I <0.012 (0.000-0.034) ng/mL NT-Pro-B Natriuret Pep pg/mL Total Protein (6.3-8.2) g/dL Albumin (3.5-5.0) g/dL Influenza Type A (PCR) Not Detected (Not Detectd) Influenza Type B (PCR) Not Detected (Not Detectd) RSV (PCR) Not Detected (Not Detectd) SARS-CoV-2 (PCR) Not Detected (Not Detectd) Disposition Clinical Impression: Atrial fibrillation with RVR, Cough, Shortness of breath, Elevated brain natriuretic peptide (BNP) level Disposition: ADMITTED IP TO THIS HOSP Condition: Stable Is patient prescribed a controlled substance at d/c from ED?: No Referrals: Nonstaff,Physician [Primary Care Provider] - 1-2 days Time of Disposition: 23:17 Decision to Admit Reason: Admit from EC Decision Date: 08/13/24 Decision Time: 23:17
[2024-08-13] MEDS ORDERED: LOPERAMIDE 2 MG CAP PO PRN (23:01)
[2024-08-13] MEDS ORDERED: NON FORMULARY DRUG (Calcium Phos/D3/Magnesium/Zinc [Calcium-Mag-Zinc-Vitamin D3] 1 EACH Ta PO PRN (23:01)
[2024-08-13] MEDS ORDERED: NALOXONE 0.4 MG/ML 1 ML VIAL IV PRN (23:18)
[2024-08-13] MEDS: APIXABAN 5 MG TAB PO SCH (23:54)
[2024-08-13] MEDS: ATORVASTATIN 20 MG TAB PO SCH (23:54)
[2024-08-13] MEDS: guaiFENesin SYRUP 100MG/5ML 200 MG/10 ML CUP PO PRN (23:54)
[2024-08-13] MEDS: METOPROLOL SUCCINATE (ER) 100 MG TAB.ER.24H PO SCH (23:54)
[2024-08-13] MEDS: MELATONIN 5 MG TABLET PO SCH (23:54)
[2024-08-13] MEDS: metFORMIN 500 MG TAB PO SCH (23:55)
[2024-08-13] MEDS: FUROSEMIDE 10 MG/ML 4 ML VIAL IV STA (23:56)
[2024-08-14 03:11] LABS: Basophils % (A) 0 %; Eosinophils # (A) 0.2 k/uL (0-0.7); Eosinophils % (A) 2 %; HCT 37.2 % (39.0-53.0); HGB 12.2 gm/dL (13.0-17.5); Lymphocytes # (A) 0.4 k/uL (1.0-4.8); Lymphocytes % (A) 5 %; MCH 34.2 pg (25.0-35.0); MCHC 32.9 g/dL (31.0-37.0); MCV 103.8 fL (80.0-100.0); Macrocytosis Slight; Mean Platelet Volume 9.5; Monocytes # (A) 0.3 k/uL (0-1.0); Monocytes % (A) 3 %; Neutrophils # (A) 7.6 k/uL (1.3-7.7); Neutrophils % (A) 89 %; Platelet Count 156 k/uL (150-450); RBC 3.58 m/uL (4.30-5.90); RDW 14.7 % (11.5-15.5); WBC 8.5 k/uL (3.8-10.6)
[2024-08-14 03:24] LABS: African American GFR (CKD) 54 (>60 ml/min/1.73 sqM); Anion Gap 10 mmol/L; Blood Urea Nitrogen 49 mg/dL (9-20); Calcium 9.3 mg/dL (8.4-10.2); Carbon Dioxide 23 mmol/L (22-30); Chloride 102 mmol/L (98-107); Glucose 128 mg/dL (74-99); Non-African American GFR(CKD) 46 (>60 ml/min/1.73 sqM); Sodium 135 mmol/L (137-145)
[2024-08-14 04:36] LABS: Potassium 6.3 mmol/L (3.5-5.1)
[2024-08-14] MEDS: CALCIUM GLUCONATE IN NACL 1 GM in SALINE 1 100ML.BAG IVPB ONE (06:14)
[2024-08-14] MEDS: DEXTROSE 50% SYRINGE 50 ML IVP ONE (06:15)
[2024-08-14] MEDS: INSULIN REGULAR 100 UNIT/ML VIAL (IV) IV ONE (06:15)
[2024-08-14] MEDS: SODIUM ZIRCONIUM CYCLOSILICATE 10 GM PACKET PO ONE (06:15)
[2024-08-14] MEDS: DILTIAZEM CD 240 MG CAP.ER.24H PO SCH (08:04)
[2024-08-14] MEDS: FOLIC ACID 1 MG TAB PO SCH (08:06)
[2024-08-14] MEDS: ISOSORBIDE MONONITRATE ER 60 MG TAB.ER.24H PO SCH (08:14)
[2024-08-14] MEDS: lisinopriL 10 MG TAB PO SCH (08:15)
[2024-08-14] MEDS ORDERED: LORazepam 0.5 MG TAB PO PRN (11:55)
[2024-08-14] MEDS ORDERED: LORazepam 1 MG TAB PO PRN ×3 (11:55)
--- NOTE | 2024-08-14 15:51 | P.HPIM ---
History of Present Illness H&P Date: 08/14/24 Chief Complaint: Acute cough, A-fib with RVR Patient is a 69-year-old male with alcohol use disorder, atrial fibrillation, diabetes, hypertension presented to the emergency department from [facility] with shortness of breath and cough started yesterday. Patient has a history of alcohol use disorder and has been in rehab at [facility] for the past 2 weeks. Yesterday he started noticing shortness of breath and a productive cough with clear sputum and is gradually getting worse which made patient to come to the ER for evaluation. Patient said that for the past week he has been getting shortness of breath with walking and lifting objects. The shortness of breath seems to get better with sitting down. He does not wear oxygen at home. He has not been around anyone sick recently. Patient's most recent echocardiogram about 10 days ago showed left ventricular ejection fraction of 45 to 50%. Reduced global left ventricular systolic function. Patient recently had a hospitalization about 10 days ago came in after a mechanical fall from bed. Patient denies fever, chills, belly pain, nausea, vomiting, diarrhea or constipation. ED documentation reviewed. In the ED patient was treated with Lokelma 10 g p.o. x 1, hemoglobin 10 unit IV x 1, calcium gluconate 1 g IV x 1, Lasix 40 mg IV x 1 Vitals on admission temperature 97.7, pulse rate 124, respiratory rate 24, blood pressure 103/65, O2 sats 94% on room air EKG independently interpreted as atrial fibrillation with rapid ventricular response with ventricular rate of 116 bpm, QTc interval 424 ms, incomplete right bundle branch block, low QRS voltage in precordial leads CXR shows cardiomegaly without acute pulmonary process Labs on admission show WBC 8.5, hemoglobin 12.2, hematocrit 37.2, MCV 103.8, sodium 135, potassium 6.3, chloride 102, carbon dioxide 23, BUN 49, creatinine 1.53, glucose 128, total bili 1.4, AST 30, ALT 26, alkaline phosphatase 134, BNP 3210 Respiratory panel negative for flu, RSV, COVID-19 Review of systems: Pertinent positives and negatives as discussed in HPI, a complete review of systems was performed and all other systems are negative. PMH:alcohol use disorder, atrial fibrillation, diabetes, hypertension PSH: No surgical history reported FMH: No pertinent family history Allergies: Amiodarone Social history: Tobacco: Never smoker Alcohol: Alcohol abuse daily basis Recreational drugs: None reported Travel: No travel history Sick contacts: No sick contacts Physical examination: Vital signs reviewed General: nontoxic, no distress, appears at stated age Derm: warm, dry, intact Head: atraumatic, normocephalic, symmetric Eyes: EOMI, anicteric sclera Mouth: no lip lesion, mucus membranes moist Cardiovascular: S1 S2 reg, no murmur Lungs: CTA bilateral, no rhonchi, no rales, no accessory muscle use Abdominal: soft, non-tender to palpation Extremities: No cyanosis, clubbing, or pedal edema. Neuro: Alert, Oriented, Gross neurological examination did not reveal any focal deficits. Cranial nerves II to XII grossly intact. Bilateral upper and lower extremity muscle strength intact and sensation intact. Psych: well appearing, appropriate affect Assessment/Plan: Patient is a 69-year-old male with alcohol use disorder, atrial fibrillation, diabetes, hypertension presented to the emergency department from [facility] with shortness of breath and cough started yesterday. Patient will be admitted to internal medicine service. Active: #. Atrial fibrillation with rapid ventricular response EKG showed atrial fibrillation with rapid ventricular response with ventricular rate of 116 bpm, QTc interval 424 ms, incomplete right bundle branch block, low QRS voltage in precordial leads Continue metoprolol succinate 100 mg daily and Eliquis 5 mg twice daily Cardiology has been consulted by ED Order TSH #. Acute congestive heart failure BNP 3210 Most recent echo on 08/04/2024 showed left ventricular ejection fraction of 45 to 50% #. Alcohol use disorder, currently in rehab [facility] protocol Continue cardiac monitoring #. Hyperkalemia Initial potassium was 6.3 Lokelma 10 g p.o. x 1 was given in the ED Repeat potassium at 5.1 Monitor morning BMP #. Mild hyponatremia Sodium 135 Judicious use of normal saline as patient has congestive heart failure with most recent echo showing LVEF of 45 to 50%. #. Acute kidney injury BUN 49 Creatinine 1.53 Avoid nephrotoxic medications #. Macrocytic anemia Hemoglobin 12.2 MCV 103.8 Obtain folate and B12 Monitor morning CBC Chronic: #. Type 2 diabetes #. Hypertension #. Atrial fibrillation Home medications have been resumed. Hold Lasix 20 mg daily and Aldactone 25 mg daily. F: No restrictions E: Replete as needed N: Heart healthy diet A: EMS DVT prophylaxis: Full code The patient is admitted with an anticipated less than 2 midnight stay for evaluation of atrial fibrillation with rapid ventricular response CODE STATUS: Full code Discussed with: Patient Anticipated discharge place: Home Past Medical History Past Medical History: Atrial Fibrillation, Diabetes Mellitus, Hypertension Additional Past Medical History / Comment(s): ETOH abuse History of Any Multi-Drug Resistant Organisms: None Reported Past Surgical History: No Surgical Hx Reported Past Psychological History: No Psychological Hx Reported Smoking Status: Never smoker Past Alcohol Use History: Abuse, Daily Past Drug Use History: None Reported Medications and Allergies Home Medications Medication Instructions Recorded Confirmed Type Acetaminophen Tab [Tylenol] 650 mg PO Q4H PRN 08/04/24 08/13/24 History Apixaban [Eliquis] 5 mg PO BID 08/04/24 08/13/24 History Calcium Phos/D3/Magnesium/Zinc 1 tab PO TID PRN 08/04/24 08/13/24 History [Aitvcvv-Qea-Yibg-Vitamin D3] Folic Acid 1 mg PO DAILY 08/04/24 08/13/24 History Furosemide [Lasix] 20 mg PO DAILY 08/04/24 08/13/24 History Isosorbide Mononitrate ER [Imdur] 60 mg PO DAILY 08/04/24 08/13/24 History Melatonin 10 mg PO HS 08/04/24 08/13/24 History Multivitamins, Thera [Multivitamin 1 tab PO DAILY 08/04/24 08/13/24 History (formulary)] Spironolactone [Aldactone] 25 mg PO DAILY 08/04/24 08/13/24 History metFORMIN HCL ER [Glucophage XR] 500 mg PO W/SUPPER 08/04/24 08/13/24 History traZODone HCL [Desyrel] 50 - 150 mg PO HS PRN 08/04/24 08/13/24 History Diltiazem Cd [Cardizem CD] 240 mg PO DAILY 08/13/24 08/13/24 History Loperamide [Imodium] 4 mg PO QID PRN 08/13/24 08/13/24 History Metoprolol Succinate (ER) [Toprol 100 mg PO DAILY 08/13/24 08/13/24 History XL] Rosuvastatin [Crestor] 10 mg PO HS 08/13/24 08/13/24 History guaiFENesin [guaiFENesin Oral 200 mg PO Q4H PRN 08/13/24 08/13/24 History Solution] lisinopriL [Zestril] 10 mg PO BID 08/13/24 08/13/24 History Allergies Allergy/AdvReac Type Severity Reaction Status Date / Time amiodarone Allergy Unknown, Verified 08/13/24 20:53 per [facility] Physical Exam Vitals: Vital Signs Temp Pulse Resp BP Pulse Ox 08/14/24 07:33 97.7 F 124 H 24 103/65 94 L 08/14/24 06:36 99.0 F 116 H 18 102/68 94 L 08/14/24 03:18 110 H 18 96 08/14/24 02:19 117 H 18 109/88 97 08/14/24 00:17 124 H 22 121/84 96 08/13/24 23:50 138 H 120/73 92 L 08/13/24 22:00 120 H 22 150/95 92 L 08/13/24 20:27 107 H 18 120/77 94 L 08/13/24 19:21 114 H 20 126/80 96 08/13/24 18:37 98.0 F 120 H 20 95/83 94 L Intake and Output 08/13/24 08/14/24 08/14/24 22:59 06:59 14:59 Other: Weight 136.078 kg Results CBC & Chem 7: 08/14/24 03:00 08/14/24 09:39 Labs: Abnormal Lab Results - Last 24 Hours (Table) 08/13/24 08/13/24 08/14/24 Range/Units 19:08 19:08 03:00 WBC 10.8 H (3.8-10.6) k/uL RBC 3.71 L 3.58 L (4.30-5.90) m/uL Hgb 12.7 L 12.2 L (13.0-17.5) gm/dL Hct 38.3 L 37.2 L (39.0-53.0) % MCV 103.3 H 103.8 H (80.0-100.0) fL Neutrophils # 9.0 H (1.3-7.7) k/uL Lymphocytes # 0.4 L (1.0-4.8) k/uL Sodium 136 L (137-145) mmol/L Potassium 5.8 H (3.5-5.1) mmol/L BUN 45 H (9-20) mg/dL Creatinine 1.47 H (0.66-1.25) mg/dL Glucose 120 H (74-99) mg/dL Total Bilirubin 1.4 H (0.2-1.3) mg/dL Alkaline Phosphatase 134 H (38-126) U/L 08/14/24 Range/Units 03:00 WBC (3.8-10.6) k/uL RBC (4.30-5.90) m/uL Hgb (13.0-17.5) gm/dL Hct (39.0-53.0) % MCV (80.0-100.0) fL Neutrophils # (1.3-7.7) k/uL Lymphocytes # (1.0-4.8) k/uL Sodium 135 L (137-145) mmol/L Potassium 6.3 H* (3.5-5.1) mmol/L BUN 49 H (9-20) mg/dL Creatinine 1.53 H (0.66-1.25) mg/dL Glucose 128 H (74-99) mg/dL Total Bilirubin (0.2-1.3) mg/dL Alkaline Phosphatase (38-126) U/L
[2024-08-14 18:17] LABS: Glucose,Whole Blood 150 mg/dL (70-110)
[2024-08-14 19:47] LABS: Glucose,Whole Blood 121 mg/dL (70-110)
[2024-08-15 05:50] LABS: Glucose,Whole Blood 137 mg/dL (70-110)
[2024-08-15] MEDS: ACETAMINOPHEN TAB 325 MG TAB PO PRN (06:24)
[2024-08-15] MEDS: BENZONATATE 100 MG CAP PO PRN (08:07)
[2024-08-15 08:36] LABS: Basophils # (A) 0.03 X 10*3/uL (0.00-0.10); Basophils % (A) 0.3 %; Eosinophils # (A) 0.15 X 10*3/uL (0.04-0.35); Eosinophils % (A) 1.5 %; HCT 36.4 % (39.6-50.0); HGB 12.1 g/dL (13.0-17.0); Lymphocytes % (A) 18.5 %; MCH 34.4 pg (27.0-32.0); MCHC 33.2 g/dL (32.0-37.0); MCV 103.4 FL (80.0-97.0); Mean Platelet Volume 12.1 FL (9.5-12.2); Monocytes # (A) 0.78 X 10*3/uL (0.20-1.00); NRBC Per 100 WBC 0 X 10*3/uL (0.00-0.01); Neutrophils # (A) 6.95 X 10*3/uL (1.80-7.70); Neutrophils % (A) 71.5 %; Platelet Count 166 X 10*3/uL (140-440); RBC 3.52 X 10*6/uL (4.40-5.60); RDW 15.2 % (11.5-14.5); WBC 9.73 X 10*3/uL (4.50-10.00)
[2024-08-15 08:49] LABS: Blood Urea Nitrogen 53.2 mg/dL (9.0-27.0); Carbon Dioxide 21.1 mmol/L (21.6-31.8); Chloride 101 mmol/L (96-109); Glucose 127 mg/dL (70-110); Potassium 4.8 mmol/L (3.5-5.5); Sodium 136 mmol/L (135-145)
--- NOTE | 2024-08-15 11:35 | P.CRDCN ---
History of Present Illness History of present illness: This is a 69-year-old male with history of atrial fibrillation on Eliquis, hypertension, hyperlipidemia, diabetes and alcohol abuse. patient was just seen approximately one half weeks ago at the hospital with a mechanical fall out of his bed. Some of his medications were adjusted including Toprol was being taken 100 twice a day extended release however change to 100 daily and Cardizem 180 as well. Echocardiogram was performed which showed EF 45%. He had been on lisinopril, spironolactone and Imdur as well. patient somewhat of a poor historian however states he had been feeling just generalized decreased energy. On further questioning however he admits to a cough over last 4-5 days and some general shortness of breath and fatigue. Was found to be in A. fib with RVR with heart rates in the 120s to 130s. A number of his medications were being held at [facility] secondary to low blood pressures. His creatinine initially was 1.4 however has gone up to 1.9. He states this is because he has not eaten. patient's blood pressures have been borderline with systolics in the 80s. He is concerned regarding blockages and states he wants to ask his primary care physician about blockages in the future. He has not drank in the past 3 weeks. Review Of Systems: At the time of my exam: CONSTITUTIONAL: Denies fever or chills. HEENT: Denies blurred vision, vision changes, or eye pain. Denies hemoptysis CARDIOVASCULAR: Denies chest pain. Denies orthopnea. Denies PND. Denies palpitations RESPIRATORY: Denies shortness of breath. GASTROINTESTINAL: Denies abdominal pain. Denies nausea or vomiting. HEMATOLOGIC: Denies bleeding disorders. GENITOURINARY: Denies any blood in urine. SKIN: Denies puritis. Denies rash. Physical examination: Gen: This is a 69-year-old male in no acute distress VS: reviewed HEENT: Head has scalp hematoma, normocephalic. Pupils equal, round. Sclerae is anicteric. NECK: Supple. No JVD. LUNGS: Clear to auscultation. No wheezes or rhonchi. No intercostal retractions. HEART: Irregular rate and rhythm. ABDOMEN: Soft No tenderness. EXTREMITIES: No pedal edema. No calf tenderness. NEUROLOGICAL: Patient is awake, alert and oriented x3. Assessment: persistent A. fib with RVR Acute kidney injury likely related to decreased oral intake, hypotension, HTN Hypotension likely in part related to decreased oral intake, possible infection with recent viral symptoms and cough Hyperkalemia Mild cardiomyopathy EF 45% Alcohol abuse Hypertension Hyperlipidemia Diabetes Plan: patient with a number of vague symptoms. He has been the hospital however 3 days and states he has not been fed and creatinine going up. Likely in part related to decreased oral intake, hypotension. Give IV fluids and monitor response. Hold lisinopril, spironolactone and Imdur. Increased rate control with metoprolol, previously on Toprol 100 twice a day. He states he has had 3 cardioversions in the past and does not feel any different with them last one a pproximately over a year ago. Therefore avoid rhythm control for now. Mild decrease in EF and attempt or heart failure regimen as tolerated. Past Medical History Past Medical History: Atrial Fibrillation, Diabetes Mellitus, Hypertension Additional Past Medical History / Comment(s): ETOH abuse last drink 07/24/2024 History of Any Multi-Drug Resistant Organisms: None Reported Past Surgical History: No Surgical Hx Reported Past Psychological History: No Psychological Hx Reported Smoking Status: Never smoker Past Alcohol Use History: Abuse, Daily Additional Past Alcohol Use History / Comment(s): last drink 07/24/2024, currently at [facility] Past Drug Use History: None Reported Medications and Allergies Home Medications Medication Instructions Recorded Confirmed Type Acetaminophen Tab [Tylenol] 650 mg PO Q4H PRN 08/04/24 08/13/24 History Apixaban [Eliquis] 5 mg PO BID 08/04/24 08/13/24 History Calcium Phos/D3/Magnesium/Zinc 1 tab PO TID PRN 08/04/24 08/13/24 History [Lfbtxfy-Ubb-Oyqu-Vitamin D3] Folic Acid 1 mg PO DAILY 08/04/24 08/13/24 History Furosemide [Lasix] 20 mg PO DAILY 08/04/24 08/13/24 History Isosorbide Mononitrate ER [Imdur] 60 mg PO DAILY 08/04/24 08/13/24 History Melatonin 10 mg PO HS 08/04/24 08/13/24 History Multivitamins, Thera [Multivitamin 1 tab PO DAILY 08/04/24 08/13/24 History (formulary)] Spironolactone [Aldactone] 25 mg PO DAILY 08/04/24 08/13/24 History metFORMIN HCL ER [Glucophage XR] 500 mg PO W/SUPPER 08/04/24 08/13/24 History traZODone HCL [Desyrel] 50 - 150 mg PO HS PRN 08/04/24 08/13/24 History Diltiazem Cd [Cardizem CD] 240 mg PO DAILY 08/13/24 08/13/24 History Loperamide [Imodium] 4 mg PO QID PRN 08/13/24 08/13/24 History Metoprolol Succinate (ER) [Toprol 100 mg PO DAILY 08/13/24 08/13/24 History XL] Rosuvastatin [Crestor] 10 mg PO HS 08/13/24 08/13/24 History guaiFENesin [guaiFENesin Oral 200 mg PO Q4H PRN 08/13/24 08/13/24 History Solution] lisinopriL [Zestril] 10 mg PO BID 08/13/24 08/13/24 History Allergies Allergy/AdvReac Type Severity Reaction Status Date / Time amiodarone Allergy Unknown, Verified 08/13/24 20:53 per [facility] Physical Exam Vitals: Vital Signs Temp Pulse Pulse Resp BP BP BP 08/15/24 08:05 98/65 08/15/24 08:00 110 H 08/15/24 07:00 98.4 F 118 H 16 92/58 08/15/24 02:00 97.6 F 118 H 16 158/70 08/14/24 23:03 87/63 100/71 08/14/24 20:00 98.1 F 111 H 17 116/81 08/14/24 17:57 105 H 20 121/84 08/14/24 16:28 114 H 18 104/61 08/14/24 14:32 108 H 18 85/75 08/14/24 12:30 98.8 F 107 H 18 107/55 Pulse Ox 08/15/24 08:05 08/15/24 08:00 08/15/24 07:00 95 08/15/24 02:00 95 08/14/24 23:03 08/14/24 20:00 95 01/23/25 17:57 96 08/14/24 16:28 94 L 08/14/24 14:32 96 08/14/24 12:30 98 Intake and Output 08/14/24 08/15/24 08/15/24 22:59 06:59 14:59 Other: Voiding Method Toilet Toilet # Voids 2 2 Weight 136.078 kg Results 08/15/24 05:23 08/15/24 05:23 CBC 08/15/24 Range/Units 05:23 WBC 9.73 (4.50-10.00) X 10*3/uL RBC 3.52 L (4.40-5.60) X 10*6/uL Hgb 12.1 L (13.0-17.0) g/dL Hct 36.4 L (39.6-50.0) % Plt Count 166 (140-440) X 10*3/uL Comprehensive Metabolic Panel 08/15/24 Range/Units 05:23 Sodium 136 (135-145) mmol/L Potassium 4.8 (3.5-5.5) mmol/L Chloride 101 (96-109) mmol/L Carbon Dioxide 21.1 L (21.6-31.8) mmol/L BUN 53.2 H (9.0-27.0) mg/dL Creatinine 1.9 H (0.6-1.5) mg/dL Glucose 127 H (70-110) mg/dL Calcium 9.0 (8.7-10.3) mg/dL Current Medications Generic Name Dose Route Start Last Admin Trade Name Freq PRN Reason Stop Dose Admin Acetaminophen 650 mg 08/13/24 23:01 08/15/24 06:24 Acetaminophen Tab 325 Mg Tab PO 650 mg Q4H PRN Administration Pain Apixaban 5 mg 08/13/24 23:15 08/15/24 08:04 Apixaban 5 Mg Tab PO 5 mg BID GEOFF Administration Protocol Atorvastatin Calcium 20 mg 08/13/24 23:15 08/14/24 21:02 Atorvastatin 20 Mg Tab PO 20 mg HS GEOFF Administration Benzonatate 200 mg 08/15/24 06:32 08/15/24 08:07 Benzonatate 100 Mg Cap PO 200 mg TID PRN Administration Cough Diltiazem HCl 240 mg 08/14/24 09:00 08/15/24 08:04 Diltiazem Cd 240 Mg Cap.Er.24h PO 240 mg DAILY GEOFF Administration Folic Acid 1 mg 08/14/24 09:00 08/15/24 08:04 Folic Acid 1 Mg Tab PO 1 mg DAILY GEOFF Administration Guaifenesin 200 mg 08/13/24 23:01 08/15/24 09:58 Guaifenesin Syrup 100mg/5ml 200 Mg/10 Ml Cup PO 200 mg Q4H PRN Administration cough/congestion Isosorbide Mononitrate 60 mg 08/14/24 09:00 08/15/24 08:04 Isosorbide Mononitrate Er 60 Mg Tab.Er.24h PO Not Given DAILY GEOFF Lisinopril 10 mg 08/14/24 09:00 08/15/24 08:05 Lisinopril 10 Mg Tab PO Not Given BID GEOFF Loperamide HCl 4 mg 08/13/24 23:01 Loperamide 2 Mg Cap PO QID PRN Diarrhea Lorazepam 0.5 mg 08/14/24 11:55 Lorazepam 0.5 Mg Tab PO Q4HR PRN Ciwa 4 To 5 Lorazepam 1 mg 08/14/24 11:55 Lorazepam 1 Mg Tab PO Q4HR PRN Ciwa 6 To 7 Lorazepam 2 mg 08/14/24 11:55 Lorazepam 1 Mg Tab PO Q3HR PRN Ciwa 8 To 9 Lorazepam 2 mg 08/14/24 11:55 Lorazepam 1 Mg Tab PO Q2HR PRN Ci[place] 10 or greater Melatonin 10 mg 08/13/24 23:15 08/14/24 21:02 Melatonin 5 Mg Tablet PO 10 mg HS GEOFF Administration Metformin HCl 250 mg 08/13/24 23:15 08/15/24 08:04 Metformin 500 Mg Tab PO 250 mg BID-W/MEALS GEOFF Administration Metoprolol Succinate 100 mg 08/13/24 23:15 08/15/24 08:04 Metoprolol Succinate (Er) 100 Mg Tab.Er.24h PO 100 mg DAILY GEOFF Administration Naloxone HCl 0.2 mg 08/13/24 23:18 Naloxone 0.4 Mg/Ml 1 Ml Vial IV Q2M PRN Opioid Reversal Trazodone HCl 100 mg 08/13/24 23:01 Trazodone Hcl 50 Mg Tab PO HS PRN Insomnia Intake and Output 08/14/24 08/15/24 08/15/24 22:59 06:59 14:59 Other: Voiding Method Toilet Toilet # Voids 2 2 Weight 136.078 kg 08/15/24 05:23 08/15/24 05:23
--- NOTE | 2024-08-15 11:55 | XR ---
EXAMINATION TYPE: XR chest 2V DATE OF EXAM: 08/15/2024 11:50 AM COMPARISON: Chest x-ray 2 days ago CLINICAL INDICATION: Male, 69 years old with history of cough, TECHNIQUE: Frontal and lateral views of the chest are obtained. FINDINGS: There is no suspicious now focal air space opacity, pleural effusion, or pneumothorax seen . Cardiomegaly is redemonstrated. The osseous structures are intact. IMPRESSION: Cardiomegaly without acute pulmonary infiltrate. [facility], , 08/15/2024 11:53 AM
[2024-08-15] MEDS: SODIUM CHLORIDE 0.9% 1,000 ML IV SCH (12:09)
[2024-08-15] MEDS: SODIUM CHLORIDE 0.9% 500 ML 500 ML IV ONE (12:10)
[2024-08-15] MEDS: guaiFENesin 600 MG TABLET.ER PO SCH (13:19)
--- NOTE | 2024-08-15 14:44 | P.PN ---
Subjective Progress Note Date: 08/15/24 Per Medical H&P, "Patient is a 69-year-old male with alcohol use disorder, atrial fibrillation, diabetes, hypertension presented to the emergency department from [place] with shortness of breath and cough started yesterday. Patient has a history of alcohol use disorder and has been in rehab at [place] for the past 2 weeks. Yesterday he started noticing shortness of breath and a productive cough with clear sputum and is gradually getting worse which made patient to come to the ER for evaluation. Patient said that for the past week he has been getting shortness of breath with walking and lifting objects. The shortness of breath seems to get better with sitting down. He does not wear oxygen at home. He has not been around anyone sick recently. Patient's most recent echocardiogram about 10 days ago showed left ventricular ejection fraction of 45 to 50%. Reduced global left ventricular systolic function. Patient recently had a hospitalization about 10 days ago came in after a mechanical fall from bed. Patient denies fever, chills, belly pain, nausea, vomiting, diarrhea or c onstipation. ED documentation reviewed. In the ED patient was treated with Lokelma 10 g p.o. x 1, hemoglobin 10 unit IV x 1, calcium gluconate 1 g IV x 1, Lasix 40 mg IV x 1 Vitals on admission temperature 97.7, pulse rate 124, respiratory rate 24, blood pressure 103/65, O2 sats 94% on room air EKG independently interpreted as atrial fibrillation with rapid ventricular response with ventricular rate of 116 bpm, QTc interval 424 ms, incomplete right bundle branch block, low QRS voltage in precordial leads CXR shows cardiomegaly without acute pulmonary process Labs on admission show WBC 8.5, hemoglobin 12.2, hematocrit 37.2, MCV 103.8, sodium 135, potassium 6.3, chloride 102, carbon dioxide 23, BUN 49, creatinine 1.53, glucose 128, total bili 1.4, AST 30, ALT 26, alkaline phosphatase 134, BNP 3210 Respiratory panel negative for flu, RSV, COVID-19 " Progress note for 08/15/2024: Patient was seen at bedside today. Reports worsening cough since yesterday. Patient reports feeling hungry since he did not have any food yesterday. Denies other complaints at this time. Review of Systems Constitutional: Denies chills, Denies fever Eyes: denies blurred vision, double vision or pain Ears, nose, mouth and throat: Denies headache, Denies sore throat Cardiovascular: Denies chest pain, Denies shortness of breath Respiratory: Reports cough Gastrointestinal: Denies abdominal pain, Denies diarrhea, Denies nausea, Denies vomiting Musculoskeletal: Denies myalgias Integumentary: Denies pruritus, Denies rash Neurological: Denies numbness, Denies weakness Psychiatric: Denies anxiety, Denies depression Endocrine: Denies fatigue, Denies weight change Physical exam: General: nontoxic, no distress, appears at stated age Derm: warm, dry, intact Head: atraumatic, normocephalic, symmetric Eyes: EOMI, anicteric sclera Mouth: no lip lesion, mucus membranes moist Cardiovascular: S1 S2 reg, no murmur Lungs: CTA bilateral, no rhonchi, no rales, no accessory muscle use Abdominal: soft, non-tender to palpation Extremities: No cyanosis, clubbing, or pedal edema. Neuro: Alert, Oriented, Gross neurological examination did not reveal any focal deficits. Psych: well appearing, appropriate affect Assessment/Plan: Patient is a 69-year-old male with alcohol use disorder, atrial fibrillation, diabetes, hypertension presented to the emergency department from [place] with shortness of breath and cough started yesterday. Patient will be admitted to internal medicine service. Active: #. Atrial fibrillation with rapid ventricular response EKG showed atrial fibrillation with rapid ventricular response with ventricular rate of 116 bpm, QTc interval 424 ms, incomplete right bundle branch block, low QRS voltage in precordial leads Continue metoprolol succinate 100 mg daily and Eliquis 5 mg twice daily Cardiology has been consulted by ED TSH 3.8 #. Acute congestive heart failure BNP 3210 Most recent echo on 08/04/2024 showed left ventricular ejection fraction of 45 to 50% Ordered Tessalon Perles 200 mg 3 times daily as needed for cough #. Alcohol use disorder, currently in rehab [facility] protocol Continue cardiac monitoring #. Hyperkalemia Potassium 4.8 Monitor morning BMP #. Mild hyponatremia Sodium 135 Continues normal saline at 100 cc an hour #. Acute kidney injury BUN 49 Creatinine 1.53 Avoid nephrotoxic medications Continue normal saline at 100 cc an hour Order ultrasound of kidney #. Macrocytic anemia Hemoglobin 12.1 MCV 103.4 Folate 9.4 B12 1001 Monitor morning CBC Chronic: #. Type 2 diabetes #. Hypertension #. Atrial fibrillation Home medications have been resumed. Hold Lasix 20 mg daily and Aldactone 25 mg daily. F: No restrictions E: Replete as needed N: Heart healthy diet A: EMS DVT prophylaxis: Full code The patient is admitted with an anticipated less than 2 midnight stay for evaluation of atrial fibrillation with rapid ventricular response CODE STATUS: Full code Discussed with: Patient Anticipated discharge place: Home Attestation I have seen and examined this patient with my resident , discussed the same with the resident/WADE, and agree with the dictator's assessment and plan as written Dr. Jaron shah Objective - Vital Signs Vital signs: Vital Signs Temp 98.4 F 08/15/24 07:00 Pulse 110 H 08/15/24 08:00 Resp 16 08/15/24 07:00 BP 98/65 08/15/24 08:05 Pulse Ox 95 08/15/24 07:00 FiO2 Intake & Output 08/14/24 08/15/24 08/15/24 18:59 06:59 18:59 Weight 136.078 kg Other: Voiding Method Toilet Toilet # Voids 2 - Labs CBC & Chem 7: 08/15/24 05:23 08/15/24 05:23 Labs: Abnormal Lab Results - Last 24 Hours (Table) 08/14/24 08/14/24 08/15/24 Range/Units 18:16 19:42 05:23 RBC (4.40-5.60) X 10*6/uL Hgb (13.0-17.0) g/dL Hct (39.6-50.0) % MCV (80.0-97.0) FL MCH (27.0-32.0) pg RDW (11.5-14.5) % Carbon Dioxide 21.1 L (21.6-31.8) mmol/L Anion Gap 13.90 H (4.00-12.00) mmol/L BUN 53.2 H (9.0-27.0) mg/dL Creatinine 1.9 H (0.6-1.5) mg/dL Est GFR (CKD-EPI) 38 L (>=60) BUN/Creatinine Ratio 28.00 H (12.00-20.00) Ratio Glucose 127 H (70-110) mg/dL POC Glucose (mg/dL) 150 H 121 H (70-110) mg/dL Vitamin B12 1001.0 H (200.0-944.0) pg/mL 08/15/24 08/15/24 Range/Units 05:23 05:45 RBC 3.52 L (4.40-5.60) X 10*6/uL Hgb 12.1 L (13.0-17.0) g/dL Hct 36.4 L (39.6-50.0) % MCV 103.4 H (80.0-97.0) FL MCH 34.4 H (27.0-32.0) pg RDW 15.2 H (11.5-14.5) % Carbon Dioxide (21.6-31.8) mmol/L Anion Gap (4.00-12.00) mmol/L BUN (9.0-27.0) mg/dL Creatinine (0.6-1.5) mg/dL Est GFR (CKD-EPI) (>=60) BUN/Creatinine Ratio (12.00-20.00) Ratio Glucose (70-110) mg/dL POC Glucose (mg/dL) 137 H (70-110) mg/dL Vitamin B12 (200.0-944.0) pg/mL
--- NOTE | 2024-08-15 15:02 | US ---
EXAMINATION TYPE: US kidneys/renal and bladder DATE OF EXAM: 08/15/2024 COMPARISON: NONE CLINICAL INDICATION: Male, 69 years old with history of amelia; TECHNIQUE: Grayscale imaging of the bilateral kidneys and urinary bladder: FINDINGS: EXAM MEASUREMENTS: Right Kidney: 12.0x5.3x6.3 cm Left Kidney: 12.3x5.6x5.3 cm limited exam due to pt unable to roll on left side or hold breath, limited due to pt body habitus Right Kidney: No hydronephrosis or masses seen Left Kidney: No hydronephrosis or masses seen Bladder: wnl Bilateral Jets seen: unable to visualize due to bladder not full enough IMPRESSION: Suboptimal study but No hydronephrosis seen bilaterally. [facility], , 08/15/2024 3:00 PM
[2024-08-15 17:48] LABS: Glucose,Whole Blood 137 mg/dL (70-110)
[2024-08-15] MEDS: METOPROLOL SUCCINATE (ER) 100 MG TAB.ER.24H PO SCH (20:06)
[2024-08-15] MEDS: traZODone HCL 50 MG TAB PO PRN (22:06)
[2024-08-16 06:11] LABS: Glucose,Whole Blood 157 mg/dL (70-110)
[2024-08-16] MEDS: DILTIAZEM CD 180 MG CAP.ER.24H PO SCH (09:01)
--- NOTE | 2024-08-16 09:30 | P.PN ---
Subjective Progress Note Date: 08/16/24 History of present illness: This is a 69-year-old male with history of atrial fibrillation on Eliquis, hypertension, hyperlipidemia, diabetes and alcohol abuse. patient was just seen approximately one half weeks ago at the hospital with a mechanical fall out of his bed. Some of his medications were adjusted including Toprol was being taken 100 twice a day extended release however change to 100 daily and Cardizem 180 as well. Echocardiogram was performed which showed EF 45%. He had been on lisinopril, spironolactone and Imdur as well. patient somewhat of a poor historian however states he had been feeling just generalized decreased energy. On further questioning however he admits to a cough over last 4-5 days and some general shortness of breath and fatigue. Was found to be in A. fib with RVR with heart rates in the 120s to 130s. A number of his medications were being held at [place] secondary to low blood pressures. His creatinine initially was 1.4 however has gone up to 1.9. He states this is because he has not eaten. patient's blood pressures have been borderline with systolics in the 80s. He is concerned regarding blockages and states he wants to ask his primary care physician about blockages in the future. He has not drank in the past 3 weeks. 08/16 Patient seen and examined. Patient states he normally sees with a coil shaper in [place] but it sounds like poor follow-up on his part. Heart rate is right around 118 on telemetry. He has not received his morning medications. Will plan to monitor his heart rate after medications to see if this helps with rate control. Blood pressure 106/71, pulse ox 95% on room air. No repeat blood work available this morning at the time of this dictation. Patient has been continued on IV fl uids. He is on a heart healthy diet as well. Review Of Systems: At the time of my exam: CONSTITUTIONAL: Denies fever or chills. HEENT: Denies blurred vision, vision changes, or eye pain. Denies hemoptysis CARDIOVASCULAR: Denies chest pain. Denies orthopnea. Denies PND. Denies palpitations RESPIRATORY: Denies shortness of breath. GASTROINTESTINAL: Denies abdominal pain. Denies nausea or vomiting. HEMATOLOGIC: Denies bleeding disorders. GENITOURINARY: Denies any blood in urine. SKIN: Denies puritis. Denies rash. Physical examination: Gen: This is a 69-year-old male in no acute distress VS: reviewed HEENT: Head has scalp hematoma, normocephalic. Pupils equal, round. Sclerae is anicteric. NECK: Supple. No JVD. LUNGS: Clear to auscultation. No wheezes or rhonchi. No intercostal retrac tions. HEART: Irregular rate and rhythm. ABDOMEN: Soft No tenderness. EXTREMITIES: No pedal edema. No calf tenderness. NEUROLOGICAL: Patient is awake, alert and oriented x3. Assessment: persistent A. fib with RVR Acute kidney injury likely related to decreased oral intake, hypotension, HTN Hypotension likely in part related to decreased oral intake, possible infection with recent viral symptoms and cough Hyperkalemia Mild cardiomyopathy EF 45% Alcohol abuse Hypertension Hyperlipidemia Diabetes Plan: patient with a number of vague symptoms. Continue IV fluids. Hold lisinopril, spironolactone and Imdur. Continue increased dose of metoprolol tartrate succinate 100 mg twice daily and also continue Cardizem CD 180 mg daily He states he has had 3 cardioversions in the past and does not feel any different with them last one approximately over a year ago. Therefore avoid rhythm control for now. Mild decrease in EF and attempt or heart failure regimen as tolerated. If heart rate remains elevated this afternoon, please contact cardiology for possible medication change. Nurse practitioner note has been reviewed, I agree with documented findings and plan of care. Patient was seen and examined. Objective - Vital Signs Vital signs: Vital Signs Temp 97.7 F 08/16/24 01:20 Pulse 114 H 08/16/24 01:20 Resp 20 08/16/24 01:20 BP 95/55 08/16/24 01:20 Pulse Ox 93 L 08/16/24 01:20 FiO2 Intake & Output 08/15/24 08/16/24 08/16/24 18:59 06:59 18:59 Intake Total 118 Balance 118 Intake: Oral 118 Other: Voiding Method Toilet Toilet # Voids 3 3 - Labs CBC & Chem 7: 08/15/24 05:23 08/15/24 05:23 Labs: Abnormal Lab Results - Last 24 Hours (Table) 08/15/24 08/15/24 08/15/24 Range/Units 05:23 05:23 17:46 RBC 3.52 L (4.40-5.60) X 10*6/uL Hgb 12.1 L (13.0-17.0) g/dL Hct 36.4 L (39.6-50.0) % MCV 103.4 H (80.0-97.0) FL MCH 34.4 H (27.0-32.0) pg RDW 15.2 H (11.5-14.5) % Carbon Dioxide 21.1 L (21.6-31.8) mmol/L Anion Gap 13.90 H (4.00-12.00) mmol/L BUN 53.2 H (9.0-27.0) mg/dL Creatinine 1.9 H (0.6-1.5) mg/dL Est GFR (CKD-EPI) 38 L (>=60) BUN/Creatinine Ratio 28.00 H (12.00-20.00) Ratio Glucose 127 H (70-110) mg/dL POC Glucose (mg/dL) 137 H (70-110) mg/dL Vitamin B12 1001.0 H (200.0-944.0) pg/mL 08/16/24 Range/Units 06:09 RBC (4.40-5.60) X 10*6/uL Hgb (13.0-17.0) g/dL Hct (39.6-50.0) % MCV (80.0-97.0) FL MCH (27.0-32.0) pg RDW (11.5-14.5) % Carbon Dioxide (21.6-31.8) mmol/L Anion Gap (4.00-12.00) mmol/L BUN (9.0-27.0) mg/dL Creatinine (0.6-1.5) mg/dL Est GFR (CKD-EPI) (>=60) BUN/Creatinine Ratio (12.00-20.00) Ratio Glucose (70-110) mg/dL POC Glucose (mg/dL) 157 H (70-110) mg/dL Vitamin B12 (200.0-944.0) pg/mL
--- NOTE | 2024-08-16 13:26 | P.PN ---
Subjective Progress Note Date: 08/16/24 Per Medical H&P, "Patient is a 69-year-old male with alcohol use disorder, atrial fibrillation, diabetes, hypertension presented to the emergency department from [place] with shortness of breath and cough started yesterday. Patient has a history of alcohol use disorder and has been in rehab at [place] for the past 2 weeks. Yesterday he started noticing shortness of breath and a productive cough with clear sputum and is gradually getting worse which made patient to come to the ER for evaluation. Patient said that for the past week he has been getting shortness of breath with walking and lifting objects. The shortness of breath seems to get better with sitting down. He does not wear oxygen at home. He has not been around anyone sick recently. Patient's most recent echocardiogram about 10 days ago showed left ventricular ejection fraction of 45 to 50%. Reduced global left ventricular systolic function. Patient recently had a hospitalization about 10 days ago came in after a mechanical fall from bed. Patient denies fever, chills, belly pain, nausea, vomiting, diarrhea or c onstipation. ED documentation reviewed. In the ED patient was treated with Lokelma 10 g p.o. x 1, hemoglobin 10 unit IV x 1, calcium gluconate 1 g IV x 1, Lasix 40 mg IV x 1 Vitals on admission temperature 97.7, pulse rate 124, respiratory rate 24, blood pressure 103/65, O2 sats 94% on room air EKG independently interpreted as atrial fibrillation with rapid ventricular response with ventricular rate of 116 bpm, QTc interval 424 ms, incomplete right bundle branch block, low QRS voltage in precordial leads CXR shows cardiomegaly without acute pulmonary process Labs on admission show WBC 8.5, hemoglobin 12.2, hematocrit 37.2, MCV 103.8, sodium 135, potassium 6.3, chloride 102, carbon dioxide 23, BUN 49, creatinine 1.53, glucose 128, total bili 1.4, AST 30, ALT 26, alkaline phosphatase 134, BNP 3210 Respiratory panel negative for flu, RSV, COVID-19 " Progress note for 08/15/2024: Patient was seen at bedside today. Reports worsening cough since yesterday. Patient reports feeling hungry since he did not have any food yesterday. Denies other complaints at this time. Progress note for 08/16/2024: Patient was seen at bedside today. Still reports coughing which has not improved since yesterday. He also reports a chest pain from excessive coughing. Denies shortness of breath, nausea, vomiting, belly pain, diarrhea, constipation, fever or chills. Review of Systems Constitutional: Denies chills, Denies fever Eyes: denies blurred vision, double vision or pain Ears, nose, mouth and throat: Denies headache, Denies sore throat Cardiovascular: Denies chest pain, Denies shortness of breath Respiratory: Reports cough Gastrointestinal: Denies abdominal pain, Denies diarrhea, Denies nausea, Denies vomiting Musculoskeletal: Denies myalgias Integumentary: Denies pruritus, Denies rash Neurological: Denies numbness, Denies weakness Psychiatric: Denies anxiety, Denies depression Endocrine: Denies fatigue, Denies weight change Physical exam: General: nontoxic, no distress, appears at stated age Derm: warm, dry, intact Head: atraumatic, normocephalic, symmetric Eyes: EOMI, anicteric sclera Mouth: no lip lesion, mucus membranes moist Cardiovascular: S1 S2 reg, no murmur Lungs: CTA bilateral, no rhonchi, no rales, no accessory muscle use Abdominal: soft, non-tender to palpation Extremities: No cyanosis, clubbing. trace edema in bilateral lower extremity Neuro: Alert, Oriented, Gross neurological examination did not reveal any focal deficits. Psych: well appearing, appropriate affect Assessment/Plan: Patient is a 69-year-old male with alcohol use disorder, atrial fibrillation, diabetes, hypertension presented to the emergency department from [place] with shortness of breath and cough started yesterday. Patient will be admitted to internal medicine service. Active: #. Cough, likely viral etiology Respiratory panel negative for flu, RSV, COVID-19 Chest x-ray on 08/15/2024 showed cardiomegaly without acute pulmonary infiltrate Continue Tesgordoon Lesley David Robitussin for cough #. Atrial fibrillation with rapid ventricular response EKG showed atrial fibrillation with rapid ventricular response with ventricular rate of 116 bpm, QTc interval 424 ms, incomplete right bundle branch block, low QRS voltage in precordial leads Continue metoprolol tartrate succinate 100 mg twice daily and continue Cardizem CD 180 mg daily Continue Eliquis 5 mg twice daily #. Alcohol use disorder, currently in rehab [facility] protocol Continue cardiac monitoring #. Hyperkalemia No updated labs from 08/16/2024 Obtain morning BMP #. Mild hyponatremia No updated labs from 08/16/2024 Continues normal saline at 100 cc an hour Obtain morning BMP #. Acute kidney injury Avoid nephrotoxic medications Continue normal saline at 100 cc an hour Ultrasound of kidneys show suboptimal study but no hydronephrosis seen bilaterally #. Macrocytic anemia Hemoglobin 12.1, MCV 103.4 on 08/15/2024 Monitor morning CBC Chronic: #. Type 2 diabetes #. Hypertension #. Atrial fibrillation Home medications have been resumed. Hold Lasix 20 mg daily and Aldactone 25 mg daily. #. History of congestive heart failure BNP 3210 Most recent echo on 08/04/2024 showed left ventricular ejection fraction of 45 to 50% F: No restrictions E: Replete as needed N: Heart healthy diet A: EMS DVT prophylaxis: Eliquis 5 mg twice daily The patient is admitted with an anticipated less than 2 midnight stay for evaluation of atrial fibrillation with rapid ventricular response CODE STATUS: Full code Discussed with: Patient Anticipated discharge place: Home Attestation I have seen and examined this patient with my resident , discussed the same with the resident/WADE, and agree with the dictator's assessment and plan as written Dr. Jaron shah Objective - Vital Signs Vital signs: Vital Signs Temp 97.8 F 08/16/24 07:00 Pulse 122 H 08/16/24 07:00 Resp 18 08/16/24 07:00 BP 106/71 08/16/24 07:00 Pulse Ox 95 08/16/24 07:00 FiO2 Intake & Output 08/15/24 08/16/24 08/16/24 18:59 06:59 18:59 Intake Total 118 Balance 118 Intake: Oral 118 Other: Voiding Method Toilet Toilet # Voids 3 3 - Labs CBC & Chem 7: 08/16/24 10:14 08/16/24 10:14 Labs: Abnormal Lab Results - Last 24 Hours (Table) 08/15/24 08/16/24 Range/Units 17:46 06:09 POC Glucose (mg/dL) 137 H 157 H (70-110) mg/dL
[2024-08-16 17:12] LABS: Glucose,Whole Blood 129 mg/dL (70-110)
[2024-08-17 05:45] LABS: Glucose,Whole Blood 122 mg/dL (70-110)
[2024-08-17 07:11] LABS: HCT 37.6 % (39.6-50.0); HGB 12.1 g/dL (13.0-17.0); MCH 34.1 pg (27.0-32.0); MCHC 32.2 g/dL (32.0-37.0); MCV 105.9 FL (80.0-97.0); Mean Platelet Volume 12.8 FL (9.5-12.2); NRBC Per 100 WBC 0 X 10*3/uL (0.00-0.01); Platelet Count 167 X 10*3/uL (140-440); RBC 3.55 X 10*6/uL (4.40-5.60); RDW 14.4 % (11.5-14.5); WBC 9.17 X 10*3/uL (4.50-10.00)
[2024-08-17 07:32] LABS: BUN/Creat Ratio 28.43 Ratio (12.00-20.00); Blood Urea Nitrogen 39.8 mg/dL (9.0-27.0); Calcium 8.9 mg/dL (8.7-10.3); Carbon Dioxide 21.7 mmol/L (21.6-31.8); Chloride 102 mmol/L (96-109); Glucose 147 mg/dL (70-110); Potassium 4.6 mmol/L (3.5-5.5); Sodium 135 mmol/L (135-145)
[2024-08-17 08:21] LABS: Basophils # (A) 0.04 X 10*3/uL (0.00-0.10); Basophils % (A) 0.4 %; Eosinophils # (A) 0.16 X 10*3/uL (0.04-0.35); Eosinophils % (A) 1.7 %; Lymphocytes # (A) 1.49 X 10*3/uL (0.90-5.00); Lymphocytes % (A) 16.2 %; Macrocytosis (M) 2+ (None Seen); Monocytes # (A) 0.72 X 10*3/uL (0.20-1.00); Monocytes % (A) 7.9 %; Neutrophils # (A) 6.72 X 10*3/uL (1.80-7.70); Neutrophils % (A) 73.4 %
[2024-08-17 09:38] LABS: Basophils # (A) 0.03 X 10*3/uL (0.00-0.10); Basophils % (A) 0.3 %; Eosinophils # (A) 0.21 X 10*3/uL (0.04-0.35); Eosinophils % (A) 2.4 %; HCT 37.4 % (39.6-50.0); HGB 11.7 g/dL (13.0-17.0); Lymphocytes # (A) 2.06 X 10*3/uL (0.90-5.00); Lymphocytes % (A) 23.1 %; MCHC 31.3 g/dL (32.0-37.0); MCV 105.4 FL (80.0-97.0); Mean Platelet Volume 12.4 FL (9.5-12.2); Monocytes % (A) 7.8 %; NRBC Per 100 WBC 0 X 10*3/uL (0.00-0.01); Neutrophils % (A) 66.1 %; Platelet Count 168 X 10*3/uL (140-440); RBC 3.55 X 10*6/uL (4.40-5.60); RDW 14.6 % (11.5-14.5); WBC 8.93 X 10*3/uL (4.50-10.00)
[2024-08-17 10:06] LABS: ALT 24 U/L (10-49); AST 26 U/L (14-35); Albumin/Globulin Ratio 1.29 Ratio (1.60-3.17); Alkaline Phosphatase 128 U/L (41-126); BUN/Creat Ratio 25.54 Ratio (12.00-20.00); Blood Urea Nitrogen 33.2 mg/dL (9.0-27.0); Calcium 9.1 mg/dL (8.7-10.3); Carbon Dioxide 21.7 mmol/L (21.6-31.8); Chloride 104 mmol/L (96-109); Globulin 3.1 g/dL (1.6-3.3); Glucose 107 mg/dL (70-110); Potassium 4.8 mmol/L (3.5-5.5); Sodium 137 mmol/L (135-145); Total Bilirubin 1.2 mg/dL (0.3-1.2); Total Protein 7.1 g/dL (6.2-8.2)
[2024-08-17] MEDS: AMIODARONE 200 MG TAB PO SCH (11:02)
[2024-08-17] MEDS: lisinopriL 5 MG TAB PO SCH (11:02)
--- NOTE | 2024-08-17 12:41 | P.PN ---
Subjective Progress Note Date: 08/17/24 History of present illness: This is a 69-year-old male with history of atrial fibrillation on Eliquis, hypertension, hyperlipidemia, diabetes and alcohol abuse. patient was just seen approximately one half weeks ago at the hospital with a mechanical fall out of his bed. Some of his medications were adjusted including Toprol was being taken 100 twice a day extended release however change to 100 daily and Cardizem 180 as well. Echocardiogram was performed which showed EF 45%. He had been on lisinopril, spironolactone and Imdur as well. patient somewhat of a poor historian however states he had been feeling just generalized decreased energy. On further questioning however he admits to a cough over last 4-5 days and some general shortness of breath and fatigue. Was found to be in A. fib with RVR with heart rates in the 120s to 130s. A number of his medications were being held at [place] secondary to low blood pressures. His creatinine initially was 1.4 however has gone up to 1.9. He states this is because he has not eaten. patient's blood pressures have been borderline with systolics in the 80s. He is concerned regarding blockages and states he wants to ask his primary care physician about blockages in the future. He has not drank in the past 3 weeks. 08/16 Patient seen and examined. Patient states he normally sees with a support team assoc in [place] but it sounds like poor follow-up on his part. Heart rate is right around 118 on telemetry. He has not received his morning medications. Will plan to monitor his heart rate after medications to see if this helps with rate control. Blood pressure 106/71, pulse ox 95% on room air. No repeat blood work available this morning at the time of this dictation. Patient has been continued on IV fluids. He is on a heart healthy diet as well. 08/17 Patient seen and examined. Blood pressure 113/63, heart rate 107-114, pulse ox 90 to 96% on room air. Blood work from yesterday revealed hemoglobin 12.1, BUN 39 creatinine 1.4. Telemetry is atrial fibrillation. Patient is stating that he is not feeling any better today and complaining of sore throat and also diarrhea. He has been maintained on Cardizem 180 mg and Toprol XL 100 mg twice daily for heart rate control. Physical examination: Gen: This is a 69-year-old male in no acute distress VS: reviewed HEENT: Head has scalp hematoma, normocephalic. Pupils equal, round. Sclerae is anicteric. NECK: Supple. No JVD. LUNGS: Clear to auscultation. No wheezes or rhonchi. No intercostal retractions. HEART: Irregular rate and rhythm. ABDOMEN: Soft No tenderness. EXTREMITIES: No pedal edema. No calf tenderness. NEUROLOGICAL: Patient is awake, alert and oriented x3. Assessment: persistent A. fib with RVR Acute kidney injury likely related to decreased oral intake, hypotension, HTN Hypotension likely in part related to decreased oral intake, possible infection with recent viral symptoms and cough Hyperkalemia Mild cardiomyopathy EF 45% Alcohol abuse Hypertension Hyperlipidemia Diabetes Plan: Resume lisinopril at 5 mg daily Continue to hold spironolactone and Imdur. Continue increased dose of metoprolol tartrate succinate 100 mg twice daily and also continue Cardizem CD 180 mg daily Add amiodarone 200 mg twice daily He states he has had 3 cardioversions in the past and does not feel any different with them last one approximately over a year ago. Therefore avoid rhythm control for now. Mild decrease in EF and attempt or heart failure regimen as tolerated. Nurse practitioner note has been reviewed, I agree with documented findings and plan of care. Patient was seen and examined. Objective - Vital Signs Vital signs: Vital Signs Temp 98.5 F 08/17/24 07:28 Pulse 107 H 08/17/24 07:28 Resp 18 08/17/24 07:28 BP 113/63 08/17/24 07:28 Pulse Ox 90 L 08/17/24 07:28 FiO2 Intake & Output 08/16/24 08/17/24 08/17/24 18:59 06:59 18:59 Other: Voiding Method Toilet # Voids 2 3 # Bowel Movements 1 - Labs CBC & Chem 7: 08/17/24 05:51 08/17/24 05:51 Labs: Abnormal Lab Results - Last 24 Hours (Table) 08/16/24 08/16/24 08/16/24 Range/Units 10:14 10:14 17:06 RBC 3.55 L (4.40-5.60) X 10*6/uL Hgb 12.1 L (13.0-17.0) g/dL Hct 37.6 L (39.6-50.0) % MCV 105.9 H (80.0-97.0) FL MCH 34.1 H (27.0-32.0) pg MPV 12.8 H (9.5-12.2) FL Macrocytosis (manual) 2+ A (None Seen) BUN 39.8 H (9.0-27.0) mg/dL Est GFR (CKD-EPI) 55 L (>=60) BUN/Creatinine Ratio 28.43 H (12.00-20.00) Ratio Glucose 147 H (70-110) mg/dL POC Glucose (mg/dL) 129 H (70-110) mg/dL 08/17/24 Range/Units 05:32 RBC (4.40-5.60) X 10*6/uL Hgb (13.0-17.0) g/dL Hct (39.6-50.0) % MCV (80.0-97.0) FL MCH (27.0-32.0) pg MPV (9.5-12.2) FL Macrocytosis (manual) (None Seen) BUN (9.0-27.0) mg/dL Est GFR (CKD-EPI) (>=60) BUN/Creatinine Ratio (12.00-20.00) Ratio Glucose (70-110) mg/dL POC Glucose (mg/dL) 122 H (70-110) mg/dL
--- NOTE | 2024-08-17 13:24 | P.PN ---
Subjective Progress Note Date: 08/17/24 Per Medical H&P, "Patient is a 69-year-old male with alcohol use disorder, atrial fibrillation, diabetes, hypertension presented to the emergency department from [place] with shortness of breath and cough started yesterday. Patient has a history of alcohol use disorder and has been in rehab at [place] for the past 2 weeks. Yesterday he started noticing shortness of breath and a productive cough with clear sputum and is gradually getting worse which made patient to come to the ER for evaluation. Patient said that for the past week he has been getting shortness of breath with walking and lifting objects. The shortness of breath seems to get better with sitting down. He does not wear oxygen at home. He has not been around anyone sick recently. Patient's most recent echocardiogram about 10 days ago showed left ventricular ejection fraction of 45 to 50%. Reduced global left ventricular systolic function. Patient recently had a hospitalization about 10 days ago came in after a mechanical fall from bed. Patient denies fever, chills, belly pain, nausea, vomiting, diarrhea or c onstipation. ED documentation reviewed. In the ED patient was treated with Lokelma 10 g p.o. x 1, hemoglobin 10 unit IV x 1, calcium gluconate 1 g IV x 1, Lasix 40 mg IV x 1 Vitals on admission temperature 97.7, pulse rate 124, respiratory rate 24, blood pressure 103/65, O2 sats 94% on room air EKG independently interpreted as atrial fibrillation with rapid ventricular response with ventricular rate of 116 bpm, QTc interval 424 ms, incomplete right bundle branch block, low QRS voltage in precordial leads CXR shows cardiomegaly without acute pulmonary process Labs on admission show WBC 8.5, hemoglobin 12.2, hematocrit 37.2, MCV 103.8, sodium 135, potassium 6.3, chloride 102, carbon dioxide 23, BUN 49, creatinine 1.53, glucose 128, total bili 1.4, AST 30, ALT 26, alkaline phosphatase 134, BNP 3210 Respiratory panel negative for flu, RSV, COVID-19 " Progress note for 08/15/2024: Patient was seen at bedside today. Reports worsening cough since yesterday. Patient reports feeling hungry since he did not have any food yesterday. Denies other complaints at this time. Progress note for 08/16/2024: Patient was seen at bedside today. Still reports coughing which has not improved since yesterday. He also reports a chest pain from excessive coughing. Denies shortness of breath, nausea, vomiting, belly pain, diarrhea, constipation, fever or chills. 08/17. Patient seen and examined. Breathing has improved. Still complaining of cough. Review of Systems Constitutional: Denies chills, Denies fever Eyes: denies blurred vision, double vision or pain Ears, nose, mouth and throat: Denies headache, Denies sore throat Cardiovascular: Denies chest pain, Denies shortness of breath Respiratory: Reports cough GENERAL: The patient is alert and oriented x3, not in any acute distress. Well developed, well nourished. HEENT: Pupils are round and equally reacting to light. EOMI. No scleral icterus. No conjunctival pallor. Normocephalic, atraumatic. No pharyngeal erythema. No thyromegaly. CARDIOVASCULAR: S1 and S2 present. No murmurs, rubs, or gallops. PULMONARY: Chest is clear to auscultation, no wheezing or crackles. ABDOMEN: Soft, nontender, nondistended, normoactive bowel sounds. No palpable organomegaly. MUSCULOSKELETAL: No joint swelling or deformity. EXTREMITIES: No cyanosis, clubbing, or pedal edema. NEUROLOGICAL: Gross neurological examination did not reveal any focal deficits. SKIN: No rashes. no petechiae. Assessment/Plan: Patient is a 69-year-old male with alcohol use disorder, atrial fibrillation, diabetes, hypertension presented to the emergency department from [place] with shortness of breath and cough started yesterday. Patient will be admitted to internal medicine service. Active: #. Cough, likely viral etiology Respiratory panel negative for flu, RSV, COVID-19 Chest x-ray on 08/15/2024 showed cardiomegaly without acute pulmonary infiltrate Continue [place] Lesley David Robitussin for cough #. Atrial fibrillation with rapid ventricular response Mild cardiomyopathy with a EF of 45% Chronic systolic CHF EKG showed atrial fibrillation with rapid ventricular response with ventricular rate of 116 bpm, QTc interval 424 ms, incomplete right bundle branch block, low QRS voltage in precordial leads Continue metoprolol tartrate succinate 100 mg twice daily and continue Cardizem CD 180 mg daily Amiodarone started Continue Eliquis 5 mg twice daily #. Alcohol use disorder, currently in rehab [facility] protocol Continue cardiac monitoring #. Hyperkalemia Monitor BMP #. Mild hyponatremia Monitor BMP #. Acute kidney injury Resolved #. Macrocytic anemia Hemoglobin 12.1, MCV 103.4 on 08/15/2024 Monitor morning CBC Chronic: #. Type 2 diabetes #. Hypertension #. Atrial fibrillation Continue home meds Objective - Vital Signs Vital signs: Vital Signs Temp 98.5 F 08/17/24 07:28 Pulse 107 H 08/17/24 07:28 Resp 18 08/17/24 07:28 BP 113/63 08/17/24 07:28 Pulse Ox 90 L 08/17/24 07:28 FiO2 Intake & Output 08/16/24 08/17/24 08/17/24 18:59 06:59 18:59 Other: Voiding Method Toilet # Voids 2 3 # Bowel Movements 1 - Labs CBC & Chem 7: 08/17/24 05:51 08/17/24 05:51 Labs: Abnormal Lab Results - Last 24 Hours (Table) 08/16/24 08/16/24 08/16/24 Range/Units 10:14 10:14 17:06 RBC 3.55 L (4.40-5.60) X 10*6/uL Hgb 12.1 L (13.0-17.0) g/dL Hct 37.6 L (39.6-50.0) % MCV 105.9 H (80.0-97.0) FL MCH 34.1 H (27.0-32.0) pg MCHC (32.0-37.0) g/dL RDW (11.5-14.5) % MPV 12.8 H (9.5-12.2) FL Macrocytosis (manual) 2+ A (None Seen) BUN 39.8 H (9.0-27.0) mg/dL Est GFR (CKD-EPI) 55 L (>=60) BUN/Creatinine Ratio 28.43 H (12.00-20.00) Ratio Glucose 147 H (70-110) mg/dL POC Glucose (mg/dL) 129 H (70-110) mg/dL Alkaline Phosphatase (41-126) U/L Albumin/Globulin Ratio (1.60-3.17) Ratio 08/17/24 08/17/24 08/17/24 Range/Units 05:32 05:51 05:51 RBC 3.55 L (4.40-5.60) X 10*6/uL Hgb 11.7 L (13.0-17.0) g/dL Hct 37.4 L (39.6-50.0) % MCV 105.4 H (80.0-97.0) FL MCH 33.0 H (27.0-32.0) pg MCHC 31.3 L (32.0-37.0) g/dL RDW 14.6 H (11.5-14.5) % MPV 12.4 H (9.5-12.2) FL Macrocytosis (manual) (None Seen) BUN 33.2 H (9.0-27.0) mg/dL Est GFR (CKD-EPI) (>=60) BUN/Creatinine Ratio 25.54 H (12.00-20.00) Ratio Glucose (70-110) mg/dL POC Glucose (mg/dL) 122 H (70-110) mg/dL Alkaline Phosphatase 128 H (41-126) U/L Albumin/Globulin Ratio 1.29 L (1.60-3.17) Ratio
[2024-08-17 17:07] LABS: Glucose,Whole Blood 119 mg/dL (70-110)
[2024-08-18 05:34] LABS: Glucose,Whole Blood 152 mg/dL (70-110)
--- NOTE | 2024-08-18 10:32 | P.PN ---
Subjective This is a 69-year-old male with history of atrial fibrillation on Eliquis, hypertension, hyperlipidemia, diabetes and alcohol abuse. patient was just seen approximately one half weeks ago at the hospital with a mechanical fall out of his bed. Some of his medications were adjusted including Toprol was being taken 100 twice a day extended release however change to 100 daily and Cardizem 180 as well. Echocardiogram was performed which showed EF 45%. He had been on lisinopril, spironolactone and Imdur as well. patient somewhat of a poor historian however states he had been feeling just generalized decreased energy. On further questioning however he admits to a cough over last 4-5 days and some general shortness of breath and fatigue. Was found to be in A. fib with RVR with heart rates in the 120s to 130s. A number of his medications were being held at [place] secondary to low blood pressures. His creatinine initially was 1.4 however has gone up to 1.9. He states this is because he has not eaten. patient's blood pressures have been borderline with systolics in the 80s. He is concerned regarding blockages and states he wants to ask his primary care physician about blockages in the future. He has not drank in the past 3 weeks. 08/16 Patient seen and examined. Patient states he normally sees with a tool supervisor in [place] but it sounds like poor follow-up on his part. Heart rate is right around 118 on telemetry. He has not received his morning medications. Will plan to monitor his heart rate after medications to see if this helps with rate control. Blood pressure 106/71, pulse ox 95% on room air. No repeat blood work available this morning at the time of this dictation. Patient has been continued on IV fluids. He is on a heart healthy diet as well. 08/17 Patient seen and examined. Blood pressure 113/63, heart rate 107-114, pulse ox 90 to 96% on room air. Blood work from yesterday revealed hemoglobin 12.1, BUN 39 creatinine 1.4. Telemetry is atrial fibrillation. Patient is stating that he is not feeling any better today and complaining of sore throat and also diarrhea. He has been maintained on Cardizem 180 mg and Toprol XL 100 mg twice daily for heart rate control. 08/18/2024 Patient seen and examined up ambulating around the room. Telemetry tracings reviewed. He is maintaining atrial fibrillation with rates in the 80s to 90s. He has no dizziness or palpitations. He denies chest pain or significant shortness of breath. No major bleeding on Eliquis. Blood pressure 117/77. He is inquiring about going back to [place] [facility] upon discharge. Physical examination: Gen: This is a 69-year-old male in no acute distress VS: reviewed HEENT: Head has scalp hematoma, normocephalic. Pupils equal, round. Sclerae is anicteric. NECK: Supple. No JVD. LUNGS: Clear to auscultation. No wheezes or rhonchi. No intercostal retractions. HEART: Irregular rate and rhythm. ABDOMEN: Soft No tenderness. EXTREMITIES: No pedal edema. No calf tenderness. NEUROLOGICAL: Patient is awake, alert and oriented x3. Assessment: Persistent A. fib with RVR Acute kidney injury likely related to decreased oral intake, hypotension, HTN Hypotension likely in part related to decreased oral intake, possible infection with recent viral symptoms and cough Hyperkalemia Mild cardiomyopathy EF 45% Alcohol abuse Hypertension Hyperlipidemia Diabetes Medical noncompliance Plan: Decrease amiodarone to 200 mg daily. He states he used to follow with a tool supervisor in [place] but has not been there in 2 years. He endorsed the importance of outpatient cardiology follow-up. We will give him amiodarone 200 mg daily for 30 days and then he must in that timeframe follow-up with a tool supervisor. He can follow-up here in town with Dr. De Leon if he so chooses otherwise closer to his home. He may be discharged from a cardiac perspective. Nurse practitioner note has been reviewed, I agree with documented findings and plan of care. Patient was seen and examined. Objective - Vital Signs Vital signs: Vital Signs Temp 97.6 F 08/18/24 07:40 Pulse 102 H 08/18/24 07:40 Resp 16 08/18/24 07:40 BP 117/77 08/18/24 07:40 Pulse Ox 99 08/18/24 07:40 FiO2 Intake & Output 08/17/24 08/18/24 08/18/24 18:59 06:59 18:59 Intake Total 180 118 Balance 180 118 Intake: Oral 180 118 Other: Voiding Method Toilet Toilet # Voids 3 - Labs CBC & Chem 7: 08/17/24 05:51 08/17/24 05:51 Labs: Abnormal Lab Results - Last 24 Hours (Table) 08/17/24 08/18/24 Range/Units 17:06 05:32 POC Glucose (mg/dL) 119 H 152 H (70-110) mg/dL
--- NOTE | 2024-08-18 15:38 | P.PN ---
Subjective Progress Note Date: 08/18/24 Per Medical H&P, "Patient is a 69-year-old male with alcohol use disorder, atrial fibrillation, diabetes, hypertension presented to the emergency department from [place] with shortness of breath and cough started yesterday. Patient has a history of alcohol use disorder and has been in rehab at [place] for the past 2 weeks. Yesterday he started noticing shortness of breath and a productive cough with clear sputum and is gradually getting worse which made patient to come to the ER for evaluation. Patient said that for the past week he has been getting shortness of breath with walking and lifting objects. The shortness of breath seems to get better with sitting down. He does not wear oxygen at home. He has not been around anyone sick recently. Patient's most recent echocardiogram a bout 10 days ago showed left ventricular ejection fraction of 45 to 50%. Reduced global left ventricular systolic function. Patient recently had a hospitalization about 10 days ago came in after a mechanical fall from bed. Patient denies fever, chills, belly pain, nausea, vomiting, diarrhea or co nstipation. ED documentation reviewed. In the ED patient was treated with Lokelma 10 g p.o. x 1, hemoglobin 10 unit IV x 1, calcium gluconate 1 g IV x 1, Lasix 40 mg IV x 1 Vitals on admission temperature 97.7, pulse rate 124, respiratory rate 24, blood pressure 103/65, O2 sats 94% on room air EKG independently interpreted as atrial fibrillation with rapid ventricular response with ventricular rate of 116 bpm, QTc interval 424 ms, incomplete right bundle branch block, low QRS voltage in precordial leads CXR shows cardiomegaly without acute pulmonary process Labs on admission show WBC 8.5, hemoglobin 12.2, hematocrit 37.2, MCV 103.8, sodium 135, potassium 6.3, chloride 102, carbon dioxide 23, BUN 49, creatinine 1.53, glucose 128, total bili 1.4, AST 30, ALT 26, alkaline phosphatase 134, BNP 3210 Respiratory panel negative for flu, RSV, COVID-19 " Progress note for 08/15/2024: Patient was seen at bedside today. Reports worsening cough since yesterday. Patient reports feeling hungry since he did not have any food yesterday. Denies other complaints at this time. Progress note for 08/16/2024: Patient was seen at bedside today. Still reports coughing which has not improved since yesterday. He also reports a chest pain from excessive coughing. Denies shortness of breath, nausea, vomiting, belly pain, diarrhea, constipation, fever or chills. 08/17. Patient seen and examined. Breathing has improved. Still complaining of cough. 126. Patient seen and examined. Patient still reports of cough although improving since yesterday. Patient will return home once discharged. Review of Systems Constitutional: Denies chills, Denies fever Eyes: denies blurred vision, double vision or pain Ears, nose, mouth and throat: Denies headache, Denies sore throat Cardiovascular: Denies chest pain, Denies shortness of breath Respiratory: Reports cough GENERAL: The patient is alert and oriented x3, not in any acute distress. Well developed, well nourished. HEENT: Pupils are round and equally reacting to light. EOMI. No scleral icterus. No conjunctival pallor. Normocephalic, atraumatic. No pharyngeal erythema. No thyromegaly. CARDIOVASCULAR: S1 and S2 present. No murmurs, rubs, or gallops. PULMONARY: Chest is clear to auscultation, no wheezing or crackles. ABDOMEN: Soft, nontender, nondistended, normoactive bowel sounds. No palpable organomegaly. MUSCULOSKELETAL: No joint swelling or deformity. EXTREMITIES: No cyanosis, clubbing, or pedal edema. NEUROLOGICAL: Gross neurological examination did not reveal any focal deficits. SKIN: No rashes. no petechiae. Assessment/Plan: Patient is a 69-year-old male with alcohol use disorder, atrial fibrillation, diabetes, hypertension presented to the emergency department from [place] with shortness of breath and cough started yesterday. Patient will be admitted to internal medicine service. Active: #. Cough, likely viral etiology #. Dyspnea Respiratory panel negative for flu, RSV, COVID-19 Chest x-ray on 08/15/2024 showed cardiomegaly without acute pulmonary infiltrate Continue [place] Lesley David Robitussin for cough Order procalcitonin Throat swab for strep infection Start albuterol inhaler 2 puffs 3 times daily #. Atrial fibrillation with rapid ventricular response Mild cardiomyopathy with a EF of 45% Chronic systolic CHF EKG showed atrial fibrillation with rapid ventricular response with ventricular rate of 116 bpm, QTc interval 424 ms, incomplete right bundle branch block, low QRS voltage in precordial leads Continue metoprolol tartrate succinate 100 mg twice daily and continue Cardizem CD 180 mg daily Amiodarone started Continue Eliquis 5 mg twice daily #. Alcohol use disorder, currently in rehab [facility] protocol Continue cardiac monitoring #. Hyperkalemia Monitor BMP #. Mild hyponatremia Monitor BMP #. Acute kidney injury Resolved #. Macrocytic anemia Hemoglobin 12.1, MCV 103.4 on 08/15/2024 Monitor morning CBC Chronic: #. Type 2 diabetes #. Hypertension #. Atrial fibrillation Continue home meds Objective - Vital Signs Vital signs: Vital Signs Temp 97.6 F 08/18/24 14:00 Pulse 101 H 08/18/24 14:00 Resp 16 08/18/24 14:00 BP 93/69 08/18/24 14:00 Pulse Ox 96 08/18/24 14:00 FiO2 Intake & Output 08/17/24 08/18/24 08/18/24 18:59 06:59 18:59 Intake Total 180 236 Balance 180 236 Intake: Oral 180 236 Other: Voiding Method Toilet Toilet # Voids 3 - Labs CBC & Chem 7: 08/17/24 05:51 08/17/24 05:51 Labs: Abnormal Lab Results - Last 24 Hours (Table) 08/17/24 08/18/24 Range/Units 17:06 05:32 POC Glucose (mg/dL) 119 H 152 H (70-110) mg/dL
[2024-08-18] MEDS: ALBUTEROL NEBULIZED 2.5 MG/3 ML INHALATION SCH (16:15)
[2024-08-18 17:15] LABS: Glucose,Whole Blood 128 mg/dL (70-110)
[2024-08-19 06:05] LABS: Glucose,Whole Blood 158 mg/dL (70-110)
[2024-08-19 08:17] VITALS: BP 114/73; TEMP 98.4
[2024-08-19 08:51] VITALS: PULSE 87
[2024-08-19 08:58] VITALS: RESP 16
[2024-08-19 09:04] LABS: HCT 37.5 % (39.6-50.0); HGB 12.2 g/dL (13.0-17.0); MCH 34.7 pg (27.0-32.0); MCHC 32.5 g/dL (32.0-37.0); MCV 106.5 FL (80.0-97.0); Mean Platelet Volume 12.4 FL (9.5-12.2); NRBC Per 100 WBC 0 X 10*3/uL (0.00-0.01); Platelet Count 176 X 10*3/uL (140-440); RBC 3.52 X 10*6/uL (4.40-5.60); RDW 14.7 % (11.5-14.5); WBC 9.42 X 10*3/uL (4.50-10.00)
[2024-08-19 09:05] LABS: Basophils # (A) 0.03 X 10*3/uL (0.00-0.10); Basophils % (A) 0.3 %; Eosinophils # (A) 0.27 X 10*3/uL (0.04-0.35); Eosinophils % (A) 2.9 %; Lymphocytes # (A) 1.94 X 10*3/uL (0.90-5.00); Lymphocytes % (A) 20.6 %; Monocytes # (A) 0.65 X 10*3/uL (0.20-1.00); Monocytes % (A) 6.9 %; Neutrophils # (A) 6.49 X 10*3/uL (1.80-7.70); Neutrophils % (A) 68.9 %
[2024-08-19] MEDS: AMIODARONE 200 MG TAB PO SCH (09:22)
[2024-08-19 11:52] LABS: BUN/Creat Ratio 19.08 Ratio (12.00-20.00); Blood Urea Nitrogen 22.9 mg/dL (9.0-27.0); Calcium 9.3 mg/dL (8.7-10.3); Carbon Dioxide 22.5 mmol/L (21.6-31.8); Chloride 103 mmol/L (96-109); Glucose 115 mg/dL (70-110); Sodium 137 mmol/L (135-145)
--- NOTE | 2024-08-19 12:45 | P.PN ---
Subjective HISTORY OF PRESENT ILLNESS: This is a 69-year-old male with history of atrial fibrillation on Eliquis, hypertension, hyperlipidemia, diabetes and alcohol abuse. patient was just seen approximately one half weeks ago at the hospital with a mechanical fall out of his bed. Some of his medications were adjusted including Toprol was being taken 100 twice a day extended release however change to 100 daily and Cardizem 180 as well. Echocardiogram was performed which showed EF 45%. He had been on lisinopril, spironolactone and Imdur as well. patient somewhat of a poor historian however states he had been feeling just generalized decreased energy. On further questioning however he admits to a cough over last 4-5 days and some general shortness of breath and fatigue. Was found to be in A. fib with RVR with heart rates in the 120s to 130s. A number of his medications were being held at [place] secondary to low blood pressures. His creatinine initially was 1.4 however has gone up to 1.9. He states this is because he has not eaten. patient's blood pressures have been borderline with systolics in the 80s. He is concerned regarding blockages and states he wants to ask his primary care physician about blockages in the future. He has not drank in the past 3 weeks. 08/16 Patient seen and examined. Patient states he normally sees with a jewelry repairer in [place] but it sounds like poor follow-up on his part. Heart rate is right around 118 on telemetry. He has not received his morning medications. Will plan to monitor his heart rate after medications to see if this helps with rate control. Blood pressure 106/71, pulse ox 95% on room air. No repeat blood work available this morning at the time of this dictation. Patient has been continued on IV fluids. He is on a heart healthy diet as well. 08/17 Patient seen and examined. Blood pressure 113/63, heart rate 107-114, pulse ox 90 to 96% on room air. Blood work from yesterday revealed hemoglobin 12.1, BUN 39 creatinine 1.4. Telemetry is atrial fibrillation. Patient is stating that he is not feeling any better today and complaining of sore throat and also d iarrhea. He has been maintained on Cardizem 180 mg and Toprol XL 100 mg twice daily for heart rate control. 08/18/2024 Patient seen and examined up ambulating around the room. Telemetry tracings re viewed. He is maintaining atrial fibrillation with rates in the 80s to 90s. He has no dizziness or palpitations. He denies chest pain or significant shortness of breath. No major bleeding on Eliquis. Blood pressure 117/77. He is inquiring about going back to [facility] upon discharge. 08/19/2024 Patient examined this morning at the bedside. He is sitting up in chair. Patient denies chest pain or pressure. He denies shortness of breath. EKG performed this morning reveals atrial fibrillation with controlled ventricular rate. PHYSICAL EXAM: VITAL SIGNS: Reviewed. GENERAL: Well-developed in no acute distress. NECK: Supple. No JVD or thyromegaly LUNGS: Respirations even and unlabored. Lungs essentially clear to auscultation bilaterally. HEART: Irregular rate and rhythm. S1 and S2 heard. EXTREMITIES: Normal range of motion. No clubbing or cyanosis. Peripheral pulses intact. No lower extremity edema ASSESSMENT: Persistent A. fib with RVR, currently rate controlled Acute kidney injury likely related to decreased oral intake, hypotension, HTN Hypotension likely in part related to decreased oral intake, possible infection with recent viral symptoms and cough Hyperkalemia Mild cardiomyopathy EF 45%, ischemic versus nonischemic Alcohol abuse Hypertension Hyperlipidemia Diabetes Medical noncompliance PLAN: Continue current cardiac medications Patient may be discharged today from a cardiac standpoint Patient is to follow-up postdischarge with his previous jewelry repairer in [place] Nurse practitioner note has been reviewed by physician. Signing provider agrees with the documented findings, assessment, and plan of care documented by FRUIT WASHER as a scribe. Objective - Vital Signs Vital signs: Vital Signs Temp 98.4 F 08/19/24 08:00 Pulse 87 08/19/24 08:57 Resp 16 08/19/24 08:57 BP 114/73 08/19/24 08:00 Pulse Ox 97 08/19/24 08:00 FiO2 Intake & Output 08/18/24 08/19/24 08/19/24 18:59 06:59 18:59 Intake Total 236 Balance 236 Intake: Oral 236 Other: Voiding Method Toilet Toilet # Voids 4 2 - Labs CBC & Chem 7: 08/19/24 04:58 08/19/24 04:58 Labs: Abnormal Lab Results - Last 24 Hours (Table) 08/18/24 08/19/24 08/19/24 Range/Units 17:13 04:58 04:58 RBC 3.52 L (4.40-5.60) X 10*6/uL Hgb 12.2 L (13.0-17.0) g/dL Hct 37.5 L (39.6-50.0) % MCV 106.5 H (80.0-97.0) FL MCH 34.7 H (27.0-32.0) pg RDW 14.7 H (11.5-14.5) % MPV 12.4 H (9.5-12.2) FL Glucose 115 H (70-110) mg/dL POC Glucose (mg/dL) 128 H (70-110) mg/dL 08/19/24 Range/Units 06:04 RBC (4.40-5.60) X 10*6/uL Hgb (13.0-17.0) g/dL Hct (39.6-50.0) % MCV (80.0-97.0) FL MCH (27.0-32.0) pg RDW (11.5-14.5) % MPV (9.5-12.2) FL Glucose (70-110) mg/dL POC Glucose (mg/dL) 158 H (70-110) mg/dL
--- NOTE | 2024-08-21 10:32 | CDI ---
Documentation Clarification Form Date: 08/18/2024 09:53:00 AM From: Bridget Lucas RN CCDS Phone: [phone] Admit Date: 08/16/2024 04:18:00 PM Patient Name: Mikey Gomez Visit Number: [id number] Discharge Date: 08/19/2024 03:54:00 PM ATTENTION: The Clinical Documentation Specialists (CDI) and [facility] Coding Staff appreciate your assistance in clarifying documentation. Please respond to the clarification below the line at the bottom and electronically sign. The CDI & [facility] Coding staff will review the response and follow-up if needed. Please note: Queries are made part of the Legal Health Record. If you have any questions, please contact the author of this message via ITS. Provider: Alexa Bustamante NP Conflicting documentation has been found in the medical record. As attending physician, please provide clarification. Acute congestive heart failure, HP, 08/14/2024 Chronic systolic heart failure, Medicine note, 08/17/2024. History/Risk Factors: 69 year old male presents to the ED with shortness of breath, productive cough with clear sputum gradually getting worse. Medical history: Recent admission for mechanical fall from bed 10 days ago, HTN, Alcohol abuse, Atrial Fibrillation, HLD and DM. 08/14, HP Clinical Indicators: VSS: 08/13: B/P 95/83; HR 120; RR 20; Temp 98.0F; SpO2 94% ra CXR, 08/13: Cardiomegaly without acute pulmonary process BNP, 08/13: 3210 ECHO, 08/04/2024: EF 45-50% technically difficult study: Normal left ventricular systolic function appears to be mildly impaired although clear segmental wall motion could not be evaluated. Very limited Doppler study with mild mitral and moderate tricuspid regurgitation. Treatment: 08/13 Toprol Xl 100mg Daily, 08/13 Lasix 40mg IV x 1; 08/14 Lokelma 10gm PO x 1; Please clarify which diagnosis is most appropriate: [ ] Acute on Chronic Systolic heart failure [ x ] Chronic systolic heart failure [ ] Other (please specify) [ ] Unable to determine (Template Last Revised: September 2020) MTDD
--- NOTE | 2024-08-21 20:55 | P.DS ---
Providers Date of admission: 08/16/24 16:18 Attending physician: Ave Gonsalves Consults: 08/13/24 23:18 Consult Physician Urgent Consulting Provider: [facility] Consult Reason/Comments: afib with rvr, dyspnea Do you want consulting provider notified?: Yes Primary care physician: Physician Nonstaff Hospital Course: Final Diagnosis Acute kidney injury prerenal form hypotension Atrial fibrillation with RVR Viral illness Mild cardiomyopathy with an EF of 45% Chronic systolic heart failure with no acute exacerbation Alcohol use disorder was at [facility] rehab Hyperkalemia Mild hyponatremia Diabetes mellitus type 2 Hypertension Medical noncompliance Discharge Disposition Patient is stable for discharge home patient has been cleared by cardiology. 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 Otherwise he can follow up with Dr. De Leon. He is given script for oral amiodarone 20 mg daily for 30 days. Additionally he is discharged on twice daily toprol XL, daily cardizem and daily lisinopril at 5 mg PO daily. Follow up with PCP Dr. Casanova. Hospital Course "Patient is a 69-year-old male with alcohol use disorder, atrial fibrillation, diabetes, hypertension presented to the emergency department from [facility] with shortness of breath and cough started yesterday. Patient has a history of alcohol use disorder and has been in rehab at [facility] for the past 2 weeks. Yesterday he started noticing shortness of breath and a productive cough with clear sputum and is gradually getting worse which made patient to come to the ER for evaluation. Patient said that for the past week he has been getting shortness of breath with walking and lifting objects. The shortness of breath seems to get better with sitting down. He does not wear oxygen at home. He has not been around anyone sick recently. Patient's most recent echocardiogram about 10 days ago showed left ventricular ejection fraction of 45 to 50%. Reduced global left ventricular systolic function. Patient recently had a hospitalization about 10 days ago came in after a mechanical fall from bed. Patient denies fever, chills, belly pain, nausea, vomiting, diarrhea or constipation. EKG independently interpreted as atrial fibrillation with rapid ventricular response with ventricular rate of 116 bpm, QTc interval 424 ms, incomplete right bundle branch block, low QRS voltage in precordial leads. CXR shows cardiomegaly without acute pulmonary process. Labs on admission show WBC 8.5, hemoglobin 12.2, hematocrit 37.2, MCV 103.8, sodium 135, potassium 6.3, chloride 102, carbon dioxide 23, BUN 49, creatinine 1.53, glucose 128, total bili 1.4, AST 30, ALT 26, alkaline phosphatase 134, BNP 3210. Respiratory panel negative for flu, RSV, COVID-19. Patient was admitted to the hospital for atrial fibrillation with RVR. Cardiology evaluated the patient. Medications were adjusted he has been continued on cardizem 180 mg and toprol xl 100 mg twice daily. He denies chest pain or significant shortness of breath. He is unable to return to [place] as he has came to the hospital multiple times while being there. He was cleared by cardiology for discharge, hemodynamically stable. Please see medication reconciliation for a list of current medications. Thank you for allowing us to participate in the care of this patient. The impression and plan of care has been dictated by Alexa Bustamante, Nurse Practitioner as directed. Dr. Mahogany MD I have performed a history and physical examination and medical decision making of this patient, discussed the same with the dictator, and agree with the dictators assessment and plan as written, documented as a scribe. Based on total visit time, I have performed more than 50% of this visit. Patient Condition at Discharge: Stable Plan - Discharge Summary Discharge Rx Participant: No New Discharge Prescriptions: New Amiodarone [Cordarone] 200 mg PO DAILY #30 tab Metoprolol Succinate (ER) [Toprol XL] 100 mg PO BID #60 tab Diltiazem Cd [Cardizem CD] 180 mg PO DAILY #30 cap Benzonatate [Tessalon Perles] 200 mg PO TID PRN #12 cap PRN Reason: Cough lisinopriL [Zestril] 5 mg PO DAILY #30 tab Continue Acetaminophen Tab [Tylenol] 650 mg PO Q4H PRN PRN Reason: Pain Melatonin 10 mg PO HS Calcium Phos/D3/Magnesium/Zinc [Vtdhjkc-Ouf-Hxkm-Vitamin D3] 1 tab PO TID PRN PRN Reason: muscle cramps Furosemide [Lasix] 20 mg PO DAILY Folic Acid 1 mg PO DAILY guaiFENesin [guaiFENesin Oral Solution] 200 mg PO Q4H PRN PRN Reason: cough/congestion Rosuvastatin [Crestor] 10 mg PO HS traZODone HCL [Desyrel] 50 - 150 mg PO HS PRN PRN Reason: Insomnia Spironolactone [Aldactone] 25 mg PO DAILY Multivitamins, Thera [Multivitamin (formulary)] 1 tab PO DAILY metFORMIN HCL ER [Glucophage XR] 500 mg PO W/SUPPER Isosorbide Mononitrate ER [Imdur] 60 mg PO DAILY Apixaban [Eliquis] 5 mg PO BID Loperamide [Imodium] 4 mg PO QID PRN PRN Reason: Diarrhea Discontinued Diltiazem Cd [Cardizem CD] 240 mg PO DAILY Metoprolol Succinate (ER) [Toprol XL] 100 mg PO DAILY lisinopriL [Zestril] 10 mg PO BID Discharge Medication List Acetaminophen Tab [Tylenol] 650 mg PO Q4H PRN 08/04/24 [History] Apixaban [Eliquis] 5 mg PO BID 08/04/24 [History] Calcium Phos/D3/Magnesium/Zinc [Bnpqzlf-Efp-Dhnl-Vitamin D3] 1 tab PO TID PRN 08/04/24 [History] Folic Acid 1 mg PO DAILY 08/04/24 [History] Furosemide [Lasix] 20 mg PO DAILY 08/04/24 [History] Isosorbide Mononitrate ER [Imdur] 60 mg PO DAILY 08/04/24 [History] Melatonin 10 mg PO HS 08/04/24 [History] Multivitamins, Thera [Multivitamin (formulary)] 1 tab PO DAILY 08/04/24 [History] Spironolactone [Aldactone] 25 mg PO DAILY 08/04/24 [History] metFORMIN HCL ER [Glucophage XR] 500 mg PO W/SUPPER 08/04/24 [History] traZODone HCL [Desyrel] 50 - 150 mg PO HS PRN 08/04/24 [History] Loperamide [Imodium] 4 mg PO QID PRN 08/13/24 [History] Rosuvastatin [Crestor] 10 mg PO HS 08/13/24 [History] guaiFENesin [guaiFENesin Oral Solution] 200 mg PO Q4H PRN 08/13/24 [History] Amiodarone [Cordarone] 200 mg PO DAILY #30 tab 08/19/24 [Rx] Benzonatate [Tessalon Perles] 200 mg PO TID PRN #12 cap 08/19/24 [Rx] Diltiazem Cd [Cardizem CD] 180 mg PO DAILY #30 cap 08/19/24 [Rx] Metoprolol Succinate (ER) [Toprol XL] 100 mg PO BID #60 tab 08/19/24 [Rx] lisinopriL [Zestril] 5 mg PO DAILY #30 tab 08/19/24 [Rx] Follow up Appointment(s)/Referral(s): Zak Gonzalez DO [STAFF PHYSICIAN] - 1 Week (Follow-up with your rodeo performer outpatient in next 2 weeks [facility] will call patient with appointment ) Nonstaff,Physician [Primary Care Provider] - 1-2 days Ambulatory/Diagnostic Orders: Basic Metabolic Panel [LAB.AMB] Time Frame: 3 Days, Location: None Selected Patient Instructions/Handouts: A-fib (Atrial Fibrillation) (DC) Activity/Diet/Wound Care/Special Instructions: Please follow up with your PCP Dr. Ana María Casanova in 1 to 2 days Need to either establish with a rodeo performer close to your home Or follow up with Dr. Gonzalez in the office in [place] Discharge/Stand Alone Forms: AA Meetings [address] - [facility], AA Meetings [facility], Who Do I Call?, Community Resources, Outpatient Counseling, In Substance Abuse Facilities Discharge Disposition: HOME SELF-CARE
== END 2024-08-19 15:54 | disposition home or self-care (01) | DRG 309 ==
LOC: EC 18:33 → 6NMEDSUR 23:23 → OBSVTOIN 08-16 16:18
PROVIDERS: ADMIT Hospitalist; ATTEND Hospitalist
PROC: 3E033RZ Introduction of Antiarrhythmic into Peripheral Vein, Percutaneous Approach (ICD-10-PCS; principal; 2024-08-13)
DX: I48.19 Other persistent atrial fibrillation (principal); E87.1 Hypo-osmolality and hyponatremia; I50.22 Chronic systolic (congestive) heart failure; N17.9 Acute kidney failure, unspecified; I11.0 Hypertensive heart disease with heart failure; I42.9 Cardiomyopathy, unspecified; E11.9 Type 2 diabetes mellitus without complications; D53.9 Nutritional anemia, unspecified; F10.10 Alcohol abuse, uncomplicated; R05.8 Other specified cough; R06.02 Shortness of breath; I95.9 Hypotension, unspecified; E87.5 Hyperkalemia; E78.5 Hyperlipidemia, unspecified; I45.10 Unspecified right bundle-branch block; Z79.84 Long term (current) use of oral hypoglycemic drugs; Z88.8 Allergy status to other drugs, medicaments and biological substances; Z79.899 Other long term (current) drug therapy; Z91.199 Patient's noncompliance with other medical treatment and regimen due to unspecified reason; Z79.01 Long term (current) use of anticoagulants
CPT/HCPCS: 36415; 71046; 76770; 80048; 80053; 82607; 82746; 83605; 83880; 84132; 84145; 84443; 84484; 85025; 85610; 85730; 87636; 87651; 93005; 94640; 96365; 96366; 96375; 99285